=== PATIENT | male | born 1970 | race Caucasian/White ===

== ENCOUNTER 2018-04-20 13:45 | Inpatient (IN) | payer SELFPAY ==
[2018-04-20] MEDS ORDERED: ASPIRIN 325 MG TABLET PO ONE (14:29)
[2018-04-20 14:33] LABS: ABSOLUTE BASOPHILS # (AUTO) 0.1 10^3/uL (0.0-0.2); ABSOLUTE EOSINOPHILS # (AUTO) 0.3 10^3/uL (0.0-0.6); ABSOLUTE LYMPHOCYTES (AUTO) 0.6 10^3/uL (0.5-4.7); ABSOLUTE MONOCYTES (AUTO) 0.2 10^3/uL (0.1-1.4); ABSOLUTE NEUT (AUTO) 5.1 10^3/uL (1.7-8.2); BASOPHILS % (AUTO) 1.2 % (0-2); EOSINOPHILS % (AUTO) 4.2 % (0-6); HEMOGLOBIN 9.1 g/dL (13.5-17.0); LYMPHOCYTES % (AUTO) 9.3 % (13-45); MEAN CORPUSCULAR HEMOGLOBIN 26.7 pg (27.0-33.4); MEAN CORPUSCULAR HGB CONC 32.5 g/dL (32.0-36.0); MEAN CORPUSCULAR VOLUME 82 fl (80-97); MONOCYTES % (AUTO) 2.7 % (3-13); PLATELET COUNT 128 10^3/uL (150-450); RED BLOOD COUNT 3.41 10^6/uL (4.35-5.55); RED CELL DISTRIBUTION WIDTH 15.1 % (11.5-14.0); SEGMENTED NEUTROPHILS % (AUTO) 82.6 % (42-78); TOTAL CELLS COUNTED % (AUTO) 100 %; WHITE BLOOD COUNT 6.1 10^3/uL (4.0-10.5)
[2018-04-20 14:39] LABS: INTERNATIONAL RATION (INR) 1.11; PARTIAL THROMBOPLASTIN TIME 33.1 SEC (23.5-35.8); PROTHROMBIN TIME 14.9 SEC (11.4-15.4)
[2018-04-20 14:45] LABS: ALANINE AMINOTRANSFERASE 25 U/L (21-72); ALBUMIN 3.7 g/dL (3.5-5.0); ALKALINE PHOSPHATASE 64 U/L (38-126); ANION GAP 14 (5-19); ASPARTATE AMINO TRANSFERASE 11 U/L (17-59); BILIRUBIN,DIRECT 0.3 mg/dL (0.0-0.4); BILIRUBIN,TOTAL 0.3 mg/dL (0.2-1.3); BLOOD UREA NITROGEN 70 mg/dL (7-20); CARBON DIOXIDE 14 mmol/L (22-30); CHLORIDE 111 mmol/L (98-107); CREATINE KINASE 251 U/L (55-170); GLUCOSE 107 mg/dL (75-110); SODIUM 139.1 mmol/L (137-145); TOTAL PROTEIN 6.8 g/dL (6.3-8.2)
[2018-04-20 14:57] LABS: CREATINE KINASE MB 2.81 ng/mL (<4.55); TROPONIN I 0.014 ng/mL
[2018-04-20] MEDS ORDERED: CALCIUM GLUCONATE 1000 MG/10 ML INJ IV ONE (15:06)
[2018-04-20] MEDS ORDERED: NITROGLYCERIN 0.4 MG/TAB 25 TAB/BOTTLE SL ONE (15:06)
[2018-04-20] MEDS ORDERED: SODIUM POLYSTYRENE SULFONATE 15 GM/60 ML PO ONE ×2 (15:07→17:09)
--- NOTE | 2018-04-20 15:08 | RADIOLOGY REPORT (SQ) ---
EXAM DESCRIPTION: CHEST 2 VIEWS COMPLETED DATE/TIME: 04/20/2018 2:56 pm REASON FOR STUDY: shortness of breath COMPARISON: None. EXAM PARAMETERS: NUMBER OF VIEWS: two views TECHNIQUE: Digital Frontal and Lateral radiographic views of the chest acquired. RADIATION DOSE: NA LIMITATIONS: none FINDINGS: LUNGS AND PLEURA: Perihilar interstitial infiltrates. Inter fissural fluid and bilateral pleural effusions. MEDIASTINUM AND HILAR STRUCTURES: No masses or contour abnormalities. HEART AND VASCULAR STRUCTURES: Cardiomegaly with mild pulmonary vascular congestion. BONES: No acute findings. HARDWARE: None in the chest. OTHER: No other significant finding. IMPRESSION: Findings consistent with congestive failure with interstitial edema and pleural effusion s. TECHNICAL DOCUMENTATION: JOB ID: [id number] SC-69 2010 [employer]- All Rights Reserved Reading location - IP/workstation name: [email or web address]
[2018-04-20] MEDS ORDERED: FUROSEMIDE INJ/PF 40 MG/4 ML SDV IV ONE (15:10)
[2018-04-20] MEDS ORDERED: SODIUM BICARBONATE 8.4% INJ 50 MEQ/50 ML DISP.SYRIN IV ONE ×2 (15:48→20:00)
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
--- NOTE | 2018-04-20 16:59 | EKG REPORT ---
SEVERITY:- ABNORMAL ECG - SINUS RHYTHM VENTRICULAR ECTOPICS LEFT BUNDLE BRANCH BLOCK : Confirmed by: Kevin Rosario 20-Apr-2018 16:57:52
[2018-04-20 17:07] LABS: ARTERIAL BLOOD BASE EXCESS -12.9 mmol/L; ARTERIAL BLOOD H2CO3 0.95 mmol/L (1.05-1.35); ARTERIAL BLOOD HCO3 13.2 mmol/L (20-24); ARTERIAL BLOOD O2 SATURATION 97.8 % (94-98); ARTERIAL BLOOD PCO2 31.4 mmHg (35-45); ARTERIAL BLOOD PO2 119.8 mmHg (80-100); ARTERIAL BLOOD TOTAL CO2 14.2 mmol/L (23-27)
[2018-04-20 17:08] LABS: ARTERIAL BLOOD FIO2 3L
[2018-04-20 17:09] LABS: ARTERIAL BLOOD PH 7.24 (7.35-7.45)
[2018-04-20] MEDS ORDERED: GLUCAGON,HUMAN RECOMB 1 MG INJ IM PRN (17:33)
[2018-04-20] MEDS ORDERED: DEXTROSE 50%-WATER 25 GM/50 ML DISP.SYRIN IV PRN ×2 (17:33)
[2018-04-20] MEDS ORDERED: DEXTROSE 40% GEL 15 GM TUBE PO PRN ×2 (17:33)
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
[2018-04-20 19:07] LABS: ANION GAP 13 (5-19); BLOOD UREA NITROGEN 70 mg/dL (7-20); CARBON DIOXIDE 16 mmol/L (22-30); CHLORIDE 109 mmol/L (98-107); GLUCOSE 171 mg/dL (75-110); POTASSIUM 5.5 mmol/L (3.6-5.0); SODIUM 138.1 mmol/L (137-145)
[2018-04-20 19:21] LABS: CALCIUM 6.5 mg/dL (8.4-10.2)
[2018-04-20] MEDS ORDERED: METOLAZONE 5 MG TABLET PO ONE (19:30)
[2018-04-20] MEDS ORDERED: WATER IV PRN ×4 (19:32→19:46)
[2018-04-20] MEDS ORDERED: DEXTROSE 5% IV PRN ×4 (19:32→19:46)
[2018-04-20] MEDS ORDERED: SODIUM BICARBONATE IV PRN ×4 (19:32→19:46)
[2018-04-20] MEDS ORDERED: CALCIUM GLUCONATE 2,000 MG in DEXTROSE 5%-WATER 100 ML IV ONE (20:00)
[2018-04-20] MEDS ORDERED: LACTULOSE SYRUP 20 GM/30 ML UDCUP PO ONE ×2 (21:30→23:45)
[2018-04-20] MEDS ORDERED: LACTULOSE SYRUP 20 GM/30 ML UDCUP ONE ×2 (21:48→23:48)
[2018-04-20] MEDS: HEPARIN SOD (PORCINE) 5,000 UNIT/ML 1 ML SYRINGE SUBCUT SCH (21:58)
[2018-04-20] MEDS: FUROSEMIDE INJ/PF 40 MG/4 ML SDV IV SCH (21:58)
[2018-04-20] MEDS: INSULIN LISPRO 100 UNIT/ML 3 ML VIAL SUBCUT PRN (21:58)
[2018-04-20] MEDS: SODIUM BICARBONATE 650 MG TABLET PO SCH ×2 (21:58→22:58)
[2018-04-20] MEDS ORDERED: HYDRALAZINE HCL INJ/PF 20 MG/1 ML SDV ONE (23:47)
[2018-04-20] MEDS: HYDRALAZINE HCL INJ/PF 20 MG/1 ML SDV IV PRN (23:52)
[2018-04-21 05:40] LABS: ANION GAP 15 (5-19); BLOOD UREA NITROGEN 71 mg/dL (7-20); CARBON DIOXIDE 17 mmol/L (22-30); CHLORIDE 108 mmol/L (98-107); GLUCOSE 225 mg/dL (75-110); SODIUM 139.8 mmol/L (137-145)
[2018-04-21 05:46] LABS: CALCIUM 6.6 mg/dL (8.4-10.2)
[2018-04-21 05:47] LABS: POTASSIUM 4.3 mmol/L (3.6-5.0)
[2018-04-21] MEDS: FUROSEMIDE INJ/PF 40 MG/4 ML SDV IV SCH ×3 (05:53→22:28)
[2018-04-21] MEDS: INSULIN LISPRO 100 UNIT/ML 3 ML VIAL SUBCUT PRN ×3 (08:47→22:31)
[2018-04-21] MEDS ORDERED: INSULIN GLARGINE,HUM.REC.ANLOG 300 UNIT/3 ML INSULN.PEN SUBCUT SCH (10:00)
[2018-04-21] MEDS: SODIUM BICARBONATE 650 MG TABLET PO SCH ×2 (10:41→22:26)
[2018-04-21] MEDS: HEPARIN SOD (PORCINE) 5,000 UNIT/ML 1 ML SYRINGE SUBCUT SCH ×2 (10:42→22:21)
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
[2018-04-21] MEDS: INSULIN GLARGINE,HUM.REC.ANLOG 300 UNIT/3 ML INSULN.PEN SUBCUT SCH ×2 (12:16→22:29)
[2018-04-21 12:22] LABS: ABSOLUTE RETICS # 0.021 10^6/uL (0.028-0.122); RETICULOCYTE COUNT (AUTO) 0.64 % (0.66-2.85)
[2018-04-21 13:54] LABS: FOLATE 9.77 ng/mL (>2.76)
--- NOTE | 2018-04-21 15:36 | Progress Note ---
Provider Note Provider Note: Attempted to make arrangements to transfer patient to [facility], [facility] and [facility]. Transport is still not feasible at this time per transfer centers.
[2018-04-21] MEDS ORDERED: ACETAMINOPHEN 325 MG TABLET ONE (17:54)
[2018-04-21] MEDS ORDERED: DOBUTAMINE HCL/D5W 500 MG/250 ML RTUINJ IV PRN (17:57)
[2018-04-21] MEDS: ACETAMINOPHEN 325 MG TABLET PO PRN (17:58)
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
[2018-04-21] MEDS ORDERED: DOBUTAMINE HCL/D5W 500 MG/250 ML RTUINJ IV ONE (19:48)
--- NOTE | 2018-04-21 20:32 | RADIOLOGY REPORT (SQ) ---
EXAM DESCRIPTION: CHEST SINGLE VIEW COMPLETED DATE/TIME: 04/21/2018 8:02 pm REASON FOR STUDY: central line placement COMPARISON: 04/20/2018 EXAM PARAMETERS: NUMBER OF VIEWS: One view. TECHNIQUE: Single frontal radiographic view of the chest acquired. RADIATION DOSE: NA LIMITATIONS: None. FINDINGS: LUNGS AND PLEURA: No consolidation, masses or pneumothorax. Interstitial thickening has l argely resolved. Probable small bilateral pleural effusions. MEDIASTINUM AND HILAR STRUCTURES: No masses. Contour normal. HEART AND VASCULAR STRUCTURES: Cardiomegaly. BONES: No acute findings. HARDWARE: Right subclavian central venous catheter tip projects upper over the region of the right IJ , tip beyond the inferior margin of the image. OTHER: No other significant finding. IMPRESSION: Right subclavian central venous catheter tip projects upper over the region of the right IJ, tip beyond the inferior margin of the image.Interstitial thickening has largely resolved. Proba ble small bilateral pleural effusions. TECHNICAL DOCUMENTATION: JOB ID: [id number] [place]-72 2010 [employer]- All Rights Reserved Reading location - IP/workstation name: [email or web address]
[2018-04-21] MEDS ORDERED: LIDOCAINE 1% INJ-PF (10 MG/ML) 30 ML SDV ONE (20:57)
[2018-04-21] MEDS: HYDRALAZINE HCL INJ/PF 20 MG/1 ML SDV IV PRN (21:00)
[2018-04-21] MEDS ORDERED: LORAZEPAM INJ 2 MG/1 ML VIAL ONE (22:12)
[2018-04-21] MEDS: NITROGLYCERIN 50 MG/D5W 250 ML IV PRN (22:15)
--- NOTE | 2018-04-21 22:17 | RADIOLOGY REPORT (SQ) ---
XR CHEST 1 VIEW HISTORY: central line placement. COMPARISON: Radiographs from earlier the same day. FINDINGS/IMPRESSION: Interval repositioning of the right IJ line with the tip now terminating near the cavoatrial junction. No discernible pneumothorax. Unchanged appearance of lungs and pleura.
[2018-04-21] MEDS: METOPROLOL SUCCINATE 25 MG TAB.SR.24H PO SCH (22:27)
[2018-04-21] MEDS: HYDRALAZINE HCL 50 MG TABLET PO SCH (22:28)
[2018-04-21] MEDS ORDERED: LORAZEPAM INJ 2 MG/1 ML VIAL IV ONE (22:30)
[2018-04-21 23:07] LABS: CREATINE KINASE MB 1.62 ng/mL (<4.55); TROPONIN I 0.064 ng/mL
--- NOTE | 2018-04-21 23:45 | OPERATIVE REPORT E ---
Operative Report NAME: ELVIA CARVALHO : 1970 AGE: 47Y DATE OF SURGERY: 04/21/2018 ROOM: 318 PREOPERATIVE DIAGNOSIS: POOR VEINS FOR IV ACCESS AND PATIENT NEEDED PRESSORS AND ANTI-PRESSOR MEDICATIONS. PROCEDURE DONE: Insertion of central line. SURGEON: TATUM PERKINS M.D. ANESTHESIA: Local. INDICATION: This is a 47-year-old male who has poor veins for IV access and needed a central line for cardiac medications. DESCRIPTION OF PROCEDURE #1: The patient was placed in Trendelenburg position and the right subclavian area at the right infraclavicular area was then prepped and draped in the usual sterile fashion. Local anesthesia infiltrated the right infraclavicular area, the right subclavian vein punctured, and a guidewire passed through the needle towards the area of the superior vena cava. The needle was removed and the insertion site dilated. A triple-lumen catheter was then inserted through the guidewire to a distance of about 17 cm. The catheter was then anchored to the skin with 3-0 silk. All the 3 ports aspirated blood easily and instilled saline easily. A Biopatch placed at the insertion site and a transparent dressing placed. A chest x-ray was then obtained and showed that the catheter was going towards the area of the internal jugular vein towards the distal neck area. DESCRIPTION OF PROCEDURE #2: Because of this and the fact that the patient is a potential dialysis patient a new central line was placed in the right internal jugular vein. The patient was placed in the supine position and the right neck prepped and draped in the usual sterile fashion. With use of the ultrasound the right internal jugular vein was then identified. The skin was then anesthetized and the right internal jugular vein was then punctured and a guidewire passed through the needle towards the area of the superior vena cava. All the 3 ports aspirated blood easily and instilled saline easily. The catheter was then anchored to the skin with 3-0 silk. A Biopatch placed at the insertion site and transparent sterile dressings placed over the Biopatch and catheter. At this time the old catheter was then removed and pressure applied at the insertion site and a 4 x 4 and transparent dressing placed over the dressing. A chest x-ray was obtained immediately and the catheter was noted to be in a good position right at the junction of the right atrium and the superior vena cava. A formal reading will be obtained from the radiologist. There is no evidence of any pneumothorax. The patient tolerated the procedure well. DICTATING PHYSICIAN: TATUM PERKINS M.D. [id number] PHY#: [id number] ID: [id number] JOB#: [id number] ACCT: [id number] cc:TATUM PERKINS M.D. >
[2018-04-22] MEDS: FUROSEMIDE INJ/PF 40 MG/4 ML SDV IV SCH ×3 (05:49→22:21)
[2018-04-22] MEDS: HYDRALAZINE HCL 50 MG TABLET PO SCH ×3 (05:50→22:20)
[2018-04-22 06:13] LABS: CREATINE KINASE MB 1.62 ng/mL (<4.55)
[2018-04-22 06:15] LABS: TROPONIN I 0.175 ng/mL
--- NOTE | 2018-04-22 07:01 | CONSULTATION REPORT E ---
Consultation Report NAME: ELVIA CARVALHO : 1970 AGE: 47Y DATE: 04/21/2018 318 B TO: CLAUDIA VAZQUEZ M.D. FROM: DUTSY LANDEROS M.D. Requesting Physician The patient seen at 7:30 p.m. on 04/21/2018. Note: Sixty minutes were spent on this patient, with more than 50% of the time spent on direct patient care. Medical decision making is of high complexity. His medications have been reviewed. 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 The patient states that he has no chest pain or discomfort. The patient states since 1 month although he has not had any leg edema, he has had decreased effort tolerance with fatigue doing work that involves more than mild exertion. He also since the last month has had 2-pillow orthopnea and also has some episodes of PND. There are no palpitations or syncope. The patient denies any fever, chills, or cough or rigors. PAST MEDICAL HISTORY: The patient's past medical history is positive for a history of hypertension. He has diabetes mellitus type 1, with his diabetes being diagnosed at age 27, and not very well controlled. He also has a history of chronic kidney disease stage 5, diagnosed in December of 2015. He states that he has not followed with Dr. Dickinson, his metal framer, since June of 2017. At that time during the last visit to Dr. Dickinson he was told that he probably will be needing dialysis in the next 3-6 months; his GFR at that time being around 17-20 mL/h. He also states that he in 2017 had a cardiac catheterization and was told that he has normal coronary arteries. He has no other prior history of OK. He denies any history of congestive heart failure in the past. There is no history of cardiomyopathy, but the patient's echocardiography done this admission shows his LV ejection fraction to be 25%, with mild to moderate enlargement of the left ventricle. PAST SURGICAL HISTORY: None. SOCIAL HISTORY: The patient does not smoke. There is no history of EtOH abuse. ALLERGIES: He has no known allergies. DISPOSITION: The patient is a full code. His mother is the surrogate healthcare decision maker. MEDICATIONS: 1. Tylenol 650 mg p.o. q.6 hours p.r.n. 2. Aspirin 325 mg p.o. x1. 3. He is on calcium gluconate 1000 mg IV x1. 4. He also received Kayexalate 15 g x2 and also sodium bicarb 50 mg IV x1 for his hyperkalemia. 5. He is on glucose 40% gel 15 g p.o. p.r.n. and 30 mg p.o. p.r.n. hypoglycemia. 6. He is on dextrose 50% 12.5 g IV p.r.n. and 25 g IV p.r.n. hypoglycemia. 7. He is on Lasix 40 mg IV push q.8 hours. 8. He is on glucagon 1 mg IM p.r.n. hypoglycemia. 9. He is on heparin 5000 units subcutaneously q.12 hours. 10. He is on hydralazine 10 mg IV q.6 hours p.r.n. 11. He is on Lantus insulin 6 units subcutaneously q.12 hours. 12. He is on Accu-Chek a.c., t.i.d., and nightly with regular insulin coverage as per sliding scale. 13. He is on lactulose 20 mg p.o. x1. 14. He is on *------* 10 mg p.o. x1. 15. He is on nitroglycerin 1 tablet sublingual p.r.n. REVIEW OF SYSTEMS: CONSTITUTIONAL: Denies any fever, chills, or rigors. Complains of generalized fatigue and weakness. HEAD: Denies headaches or head injury. EYES: No history of amblyopia or diplopia. No history of amaurosis fugax. EARS: No history of hearing loss. No history of tinnitus. No history of recurrent ear infections. NOSE: No history of nosebleeds. No history of hay fever. No history of nasal polyposis. MOUTH: No history of altered taste sensation. No ulcers in the mouth. No bleeding from the gums. THROAT: No redness of the oropharynx. There are no exudates. There is no odynophagia or dysphagia. SKIN: There is no pruritus. There is no yellowish discoloration of the skin. There is no skin cancer. There is no psoriasis. NECK: No neck pain. No enlarged neck lymph nodes. No goiter. LUNGS: No history of asthma or COPD. No history of sleep apnea. No history of cough or sputum production. No history of wheezing. No history of pulmonary embolism. No history of hemoptysis. No history of pleuritic chest pain. No symptoms suggestive of upper or lower respiratory tract infection. CARDIAC: History of hypertension present. Denies prior history of cardiomyopathy or hypertension. No history of cardiac arrhythmia. No history of anginal symptoms. He states he has normal coronaries by cardiac catheterization in 2017. He has had some PND and orthopnea. No leg edema. No syncope. MUSCULOSKELETAL: Denies arthritis or collagen vascular disease. ENDOCRINE: History of diabetes mellitus type 1, insulin dependent, with diabetic nephropathy and neuropathy. No polydipsia or polyuria. No history of heat or cold intolerance. No history of thyroid disease. METABOLIC: Denies history of gout or hyperlipidemia. GASTROINTESTINAL: No history of GI bleed. No history of GERD. No history of peptic ulcer disease. No history of altered bowel movements. No history of fatty food intolerance. No history of cirrhosis. No history of jaundice. RENAL: History of chronic kidney disease stage 5. At present, has reached end-stage renal disease. This is probably secondary to cardiorenal syndrome due to the patient's poor LV ejection fraction and moderate mitral regurgitation. No symptoms of UTI. No history of hematuria, pyuria, or dysuria. The patient is still making urine and has put out some urine after the Lasix. CENTRAL NERVOUS SYSTEM: No history of TIA or CVA. No history of seizures, headaches, or migraines. History of diabetic neuropathy present. PSYCHIATRIC: No history of anxiety or depression. No suicidal ideation. No homicidal ideation. VASCULAR: Denies calf or buttock claudication. No history of DVT. HEMATOLOGIC: No history of bleeding diathesis. No history of clotting disorders. PHYSICAL EXAMINATION: GENERAL: The patient is well built and well nourished, in no acute distress. VITAL SIGNS: He is afebrile with a temperature of 98.6 degrees Fahrenheit. His pulse is 86 beats per minute. Blood pressure is 147/76. Respirations are 16 per minute. O2 sats are 98% on room air. HEENT: Head is atraumatic, normocephalic. Eyes: Pupils are equal, round, regular, reactive to light and accommodation. Extraocular movements are normal. There is no conjunctival pallor. There is no scleral icterus. Ears: Tympanic membranes are intact. External auditory canals are clear. Nose: There is no deviated nasal septum. Nares are patent. There is no inflammation of the nasal mucous membranes. Mouth: Mucous membranes of the mouth are moist. Tongue is moist. There are no ulcers. There is no bleeding from the gums. Throat: There is no redness of the oropharynx. There are no exudates. SKIN: There are no skin rashes, petechia, or ecchymosis. There are no skin lesions. NECK: Supple. There is no definite JVD. Carotids are equal. There is no bruit. There is no lymphadenopathy. There is no goiter. Trachea is central. LUNGS: Show bibasilar rales. There is no chest wall tenderness. There are no rhonchi or wheezing. S1 and S2 are heard. There is no S3 gallop. There is no S4 gallop. There is a systolic murmur of mitral regurgitation present. There is no rub. S1 is of normal intensity. ABDOMEN: Soft, nontender. There is no hepatosplenomegaly. Bowel sounds are well heard. There are no tender areas or masses. EXTREMITIES: Femorals are well felt. There are no femoral bruits. Leg pulses are well felt. There is no pedal edema. There is no DVT or cellulitis. There is no cyanosis or clubbing. There is no calf tenderness. CENTRAL NERVOUS SYSTEM: The patient is conscious, awake, alert, oriented x3 with no focal deficits. PSYCHIATRIC: The patient's judgment and insight are intact. His affect is normal. DIAGNOSTIC STUDIES: His chest x-ray done yesterday shows congestive heart failure with interstitial edema and pleural effusions. His repeat chest x-ray done today shows right subclavian central venous catheter in the region of the right IJ, tip beyond the inferior margin of the image. Interstitial thickening has largely resolved. Probable small bilateral pleural effusions. His EKG shows sinus rhythm with PVCs, left bundle branch block pattern. LABORATORY DATA: His white count is 6100. Hemoglobin is 9.1. Hematocrit is 28. His platelet count is 128,000. His reticulocyte count is 0.64. Absolute reticulocyte count is 0.021. His pro time is 14.9. INR is 1.11. PTT is 33.1. His ABGs done yesterday show a pH of 7.24, PCO2 is 31.4, PO2 is 119.8, and his O2 sats are 97.8% on an FiO2 of 3 L. The patient's sodium was 138.1 yesterday, with a potassium of 5.5. Today, sodium is 139.8, potassium is 4.3, chloride is 108, CO2 is 17. The patient's BUN is 71, creatinine is 9.67. GFR is reduced at 6 mL, which is end-stage renal disease. Glucose is 225. His lactic acid is 0.6. His hemoglobin A1c is 7.3. His calcium is 6.6. His iron is 35. His TIBC is 257. His percentage saturation is 14. Ferritin is 40.60. IMPRESSION: 1. Qneki-ld-lmdiasy systolic heart failure with the patient having cardiomyopathy. 2. Cardiomyopathy with severely reduced LV ejection fraction. Would recommend starting the patient on dobutamine since this worsening of his renal function may be related to cardiorenal syndrome due to poor cardiac output. In fact, the patient has *------* heart failure. Would also start the patient on IV nitroglycerin to control his blood pressure. Would recommend starting the patient also on a beta alexandra and in view of the patient's renal status, cannot use an NIKKI inhibitor or ARB, and hence, would recommend placing the patient on hydralazine. 3. Wnbvp-vg-vypmlyq renal disease. The patient has now reached end-stage renal disease. Most of this may be a combination of poor cardiac output causing further degeneration of the patient's renal function due to cardiorenal syndrome. 4. Mitral regurgitation, moderate. 5. Hypertension. 6. 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 7. Hyperkalemia, controlled. As mentioned earlier, would start the patient on a beta alexandra, continue the patient on hydralazine. Would also start the patient on p.o. hydralazine and use hydralazine IV p.r.n. if systolic blood pressure goes below 160. Also, would start the patient on dobutamine at 5 mcg/kg/min to see if this improves cardiac output and helps improve his renal status. Also, would place the patient on IV nitroglycerin to treat the patient's mitral regurgitation and also to keep the blood pressure in check. The patient may benefit from dialysis. Note: All of the above discussed with the patient. The patient did have a central line after I discussed the benefits, risks, and complications of central line and the need for central line in view of the use of possible inotropic agent. Discussed with the hospitalist taking care of the patient. Medical decision making is of high complexity. I subsequently informed the hospitalist that the patient has a bed in [place] and will be transferred there. Will follow with you if the patient remains in the hospital tomorrow. Thanking you. DICTATING PHYSICIAN: CLAUDIA VAZQUEZ M.D. [id number] PHY#: [id number] ID: [id number] JOB#: [id number] ACCT: [id number] cc:CLAUDIA VAZQUEZ M.D. > MTDD
[2018-04-22] MEDS: INSULIN LISPRO 100 UNIT/ML 3 ML VIAL SUBCUT PRN ×4 (08:36→22:24)
[2018-04-22] MEDS: ACETAMINOPHEN 325 MG TABLET PO PRN ×2 (08:42→23:02)
[2018-04-22] MEDS: SODIUM BICARBONATE 650 MG TABLET PO SCH ×2 (10:00→22:20)
[2018-04-22] MEDS: INSULIN GLARGINE,HUM.REC.ANLOG 300 UNIT/3 ML INSULN.PEN SUBCUT SCH ×2 (10:00→22:24)
[2018-04-22] MEDS: HEPARIN SOD (PORCINE) 5,000 UNIT/ML 1 ML SYRINGE SUBCUT SCH ×2 (10:00→22:24)
[2018-04-22] MEDS: METOPROLOL SUCCINATE 25 MG TAB.SR.24H PO SCH ×2 (10:00→22:21)
[2018-04-22 10:51] LABS: ANION GAP 15 (5-19); BLOOD UREA NITROGEN 75 mg/dL (7-20); CARBON DIOXIDE 18 mmol/L (22-30); CHLORIDE 103 mmol/L (98-107); GLUCOSE 301 mg/dL (75-110); POTASSIUM 3.9 mmol/L (3.6-5.0); SODIUM 135.9 mmol/L (137-145)
[2018-04-22 10:59] LABS: CALCIUM 6.3 mg/dL (8.4-10.2)
[2018-04-22 13:10] LABS: CREATINE KINASE MB 1.34 ng/mL (<4.55); TROPONIN I 0.126 ng/mL
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
--- NOTE | 2018-04-22 15:14 | Progress Note ---
Provider Note Provider Note: PROGRESS NOTE by Dr. Tiffany Tejada on 04/22/2018. SUBJECTIVE: The patient denies any chest pain or discomfort shortness of breath is slightly improved. He also states that he feels slightly better. The patient still has some orthopnea but no PND. There is no arrhythmias seen on the monitor. The patient denies any chest pain or discomfort. The patient tolerating dobutamine. Although his urine output is only totaled at 500 mL the patient states that this is the amount he passed in the urine no, but has also passed urine multiple times in the commode,which has not been measured. The patient denies any dizziness syncope or near syncope. There is no TIA or CVA symptoms. PHYSICAL EXAMINATION: The patient is well-built and well-nourished in no acute distress. He is well-groomed. Selected Entries 04/22/18 12:00 Temperature 99.7 F Temperature Oral Source Pulse Rate 92 Respiratory 16 Rate Blood Pressure 105/50 L [Left Upper Arm ] Blood Pressure 68 Mean [Left Upper Arm] O2 Sat by Pulse 98 Oximetry Oxygen Delivery Room Air Method ( includes room air) HEAD: Is atraumatic normocephalic. EYES pupils equal round regular reactive light accommodation. ENT is negative. NECK: Supple there is mild JVD present carotids equal there is no bruit there is no lymphadenopathy there is no goiter. Trachea central. There is no accessory muscle respiration use. LUNGS : A few bibasilar rales of CHF without any rhonchi or wheezing. There is no chest wall tenderness. HEART: S1-S2 is heard there is no S3 gallop there is no S4 gallop S1 is of normal intensity there is a systolic murmur left sternal border and apex there is no rub. ABDOMEN: Soft nontender there is no paraspinal megaly bowel sounds well heard there is no tender areas of masses. There is no rebound guarding or rigidity. EXTREMITIES: Femorals are well felt there is no femoral bruits neck pulses are well felt there is no pedal edema there is no DVT vasculitis is no calf tenderness. 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 PSYCHIATRIC: The patient judgment and insight are intact his affect is normal. 04/22/18 04/22/18 04/22/18 05:10 10:10 12:00 Sodium 135.9 L Potassium 3.9 Chloride 103 Carbon Dioxide 18 L BUN 75 H Creatinine 9.43 H Est GFR (Non-Af Amer) 6 L Glucose 301 H Calcium 6.3 L* Creatine Kinase 116 CK-MB (CK-2) 1.62 Troponin I 0.175 04/22/18 12:00 Sodium Potassium Chloride Carbon Dioxide BUN Creatinine Est GFR (Non-Af Amer) Glucose Calcium Creatine Kinase CK-MB (CK-2) 1.34 Troponin I 0.126 IMPRESSION: 1. Urowz-cu-lxvcxzq systolic heart failure with the patient having cardiomyopathy. 2. Cardiomyopathy with severely reduced LV ejection fraction. Would recommend starting the patient on dobutamine since this worsening of his renal function may be related to cardiorenal syndrome due to poor cardiac output. In fact, the patient has "forward pump "heart failure. Continue the patient's IV nitroglycerin drip. Would increase the patient's dobutamine to 7.5 mcg/kg/min. Continue hydralazine. Will increase the patient' s Lasix to 60 mg IV push every 8 hours. 3. Ggjwl-js-hymcnke renal disease. The patient has now reached end-stage renal disease. Most of this may be a combination of poor cardiac output causing further degeneration of the patient's renal function due to cardiorenal syndrome. 4. Mitral regurgitation, moderate. 5. Hypertension. 6. 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 Blood sugars still not optimally current controlled 7. Hyperkalemia, resolved. As mentioned earlier, would you the patient on a beta alexandra, continue the patient on hydralazine. Would use hydralazine IV p.r.n. if systolic blood pressure above 160. Also, mentioned earlier would increase dobutamine to 7 5 mcg/kg/min to see if this improves cardiac output and helps improve his renal status. The patient may benefit from dialysis. 8. Chronic left bundle branch block pattern. Discussed with the patient and medication changes. Discussed with the hospitalist taking care of the patient. The patient is awaiting a bed from [facility] where he has been accepted in transfer. Note 40 minutes spent on this patient more than 50% of time spent in direct patient care. His medications have been reviewed and adjusted. Medical decision making is of high complexity.
--- NOTE | 2018-04-22 17:11 | XCELERA REPORT ---
[address] [address] Transthoracic Echocardiogram Report Name: ELVIA CARVALHO Age: 47 yrs Gender: Male : 1970 Patient Status: Inpatient Patient Location: [address] [place], [place] [address] Study Date: 04/20/2018 08:57 PM Height: 73 in Weight: 175 lb BSA: 2.0 m2 Procedure: A two-dimensional transthoracic echocardiogram with color flow Doppler was performed. Study Quality: Technically suboptimal. The study was technically difficult with many images being suboptimal in quality. Reason For Study: fluid overload, ESRD, diastolic murmur History: fluid overload, ESRD, diastolic murmur / CHF. Ordering Physician: CRISTINA QUILES Performed By: Amarilis Silva Interpretation Summary The left ventricle is mildly to moderately dilated. There is normal left ventricular wall thickness. LV EF is 25% Left ventricular systolic function is severely reduced. There is severe global hypokinesis of the left ventricle. There is no thrombus. The right ventricle is grossly normal size. The right atrium is normal. The left atrium is moderately dilated. There is no evidence of mitral valve prolapse. There is no mitral valve stenosis. There is a moderate amount of mitral regurgitation There is no aortic valve stenosis There is no LVOT obstruction. There is a trace to mild amount of aortic regurgitation There is no tricuspid stenosis. There is a trace to mild amount of tricuspid regurgitation There is mild pulmonary hypertension by echo RVSP is 41 mm of Hg , with RA mean of 10. Small pericardial effusion. There are no echocardiographic or Doppler indications for cardiac tamponade MMode/2D Measurements & Calculations RVDd: 2.8 cm LVIDd: 6.4 cm FS: 28.0 % Ao root diam: 2.9 cm IVSd: 1.1 cm LVIDs: 4.6 cm EDV(Teich): 209.8 ml Ao root area: 6.6 cm2 LVPWd: 1.1 cm ESV(Teich): 98.4 ml LA dimension: 4.7 cm EF(Teich): 53.1 % Doppler Measurements & Calculations MV E max jagdeep: MV P1/2t max jagdeep: Ao V2 max: LV V1 max P.7 cm/sec 110.5 cm/sec 104.5 cm/sec 2.4 mmHg MV A max jagdeep: MV P1/2t: 45.8 msec Ao max P.4 mmHg LV V1 max: 68.1 cm/sec MVA(P1/2t): 4.8 cm2 76.7 cm/sec MV E/A: 1.4 MV dec slope: 707.2 cm/sec2 MV dec time: 0.14 sec PA V2 max: TR max jagdeep: MV P1/2t-pr_phl: 91.6 cm/sec 278.7 cm/sec 45.8 msec PA max PG: TR max P.1 mmHg 3.4 mmHg Left Ventricle The left ventricle is mildly to moderately dilated. There is normal left ventricular wall thickness. LV EF is 25%. Left ventricular systolic function is severely reduced. There is severe global hypokinesis of the left ventricle. There is no thrombus. Right Ventricle The right ventricle is grossly normal size. Atria The right atrium is normal. The left atrium is moderately dilated. Mitral Valve There is no evidence of mitral valve prolapse. There is no vegetation seen on the mitral valve. There is no mitral valve stenosis. There is a moderate amount of mitral regurgitation. Aortic Valve There is no aortic valvular vegetation. There is no aortic valve stenosis. There is no LVOT obstruction. There is a trace to mild amount of aortic regurgitation. Tricuspid Valve There is no tricuspid stenosis. There is a trace to mild amount of tricuspid regurgitation. There is mild pulmonary hypertension by echo. RVSP is 41 mm of Hg , with RA mean of 10. Pulmonic Valve There is no pulmonic valvular stenosis. There is no pulmonic valvular regurgitation. Great Vessels The aortic root is not well visualized. Effusions Small pericardial effusion. There are no echocardiographic or Doppler indications for cardiac tamponade. : CRISTINA QUILES > Tiffany Tejada
[2018-04-22] MEDS: DOBUTAMINE HCL/D5W 500 MG/250 ML RTUINJ IV PRN (17:19)
[2018-04-23] MEDS: FUROSEMIDE INJ/PF 40 MG/4 ML SDV IV SCH (06:29)
[2018-04-23] MEDS: HYDRALAZINE HCL 50 MG TABLET PO SCH ×2 (06:29→13:35)
[2018-04-23] MEDS: DOBUTAMINE HCL/D5W 500 MG/250 ML RTUINJ IV PRN (08:46)
[2018-04-23] MEDS: INSULIN LISPRO 100 UNIT/ML 3 ML VIAL SUBCUT PRN ×2 (08:46→12:17)
[2018-04-23] MEDS: ACETAMINOPHEN 325 MG TABLET PO PRN (08:53)
[2018-04-23 09:51] LABS: ANION GAP 17 (5-19); BLOOD UREA NITROGEN 79 mg/dL (7-20); CARBON DIOXIDE 17 mmol/L (22-30); CHLORIDE 99 mmol/L (98-107); GLUCOSE 371 mg/dL (75-110); POTASSIUM 3.7 mmol/L (3.6-5.0); SODIUM 132.5 mmol/L (137-145)
[2018-04-23 09:59] LABS: CALCIUM 6.8 mg/dL (8.4-10.2)
[2018-04-23] MEDS ORDERED: CALCIUM CARBONATE 500 MG TABLET PO SCH (10:00)
[2018-04-23] MEDS: INSULIN GLARGINE,HUM.REC.ANLOG 300 UNIT/3 ML INSULN.PEN SUBCUT SCH (10:00)
[2018-04-23] MEDS ORDERED: ONDANSETRON HCL INJ/PF 4 MG/2 ML SDV IV PRN (10:17)
[2018-04-23] MEDS: HEPARIN SOD (PORCINE) 5,000 UNIT/ML 1 ML SYRINGE SUBCUT SCH (10:33)
[2018-04-23] MEDS: SODIUM BICARBONATE 650 MG TABLET PO SCH (10:36)
[2018-04-23] MEDS: METOPROLOL SUCCINATE 25 MG TAB.SR.24H PO SCH (10:36)
[2018-04-23] MEDS: NITROGLYCERIN 50 MG/D5W 250 ML IV PRN (15:21)
--- NOTE | 2018-04-23 15:37 | RADIOLOGY REPORT (SQ) ---
EXAM DESCRIPTION: CHEST SINGLE VIEW COMPLETED DATE/TIME: 04/23/2018 3:15 pm REASON FOR STUDY: re eval congestion COMPARISON: 04/21/2018 NUMBER OF VIEWS: One view. TECHNIQUE: Single frontal radiographic view of the chest acquired. LIMITATIONS: None. FINDINGS: LUNGS AND PLEURA: No opacities, masses or pneumothorax. No pleural effusion. MEDIASTINUM AND HILAR STRUCTURES: No masses. Contour normal. HEART AND VASCULAR STRUCTURES: Heart enlarged without failure. Normal vasculature. BONES: No acute findings. HARDWARE: IJ line in the right atrium. OTHER: No other significant finding. IMPRESSION: HEART ENLARGED WITHOUT FAILURE. NO OTHER SIGNIFICANT RADIOGRAPHIC FINDING IN THE CHEST. TECHNICAL DOCUMENTATION: JOB ID: [id number] [employer]- All Rights Reserved Reading location - IP/workstation name: [email or web address]
[2018-04-23 18:50] VITALS: BP 122/62
--- NOTE | 2018-04-23 18:56 | Progress Note ---
Provider Note Provider Note: Patient developed some nausea this morning but no actual vomiting. No other acute event overnight. Lasix decreased to 40 mg q12h. Patient will be transported to [facility] today.
--- NOTE | 2018-04-23 19:51 | Progress Note ---
Provider Note Provider Note: HEAD: Is atraumatic normocephalic. EYES pupils equal round regular reactive light accommodation. ENT is negative. NECK: Supple there is mild JVD present carotids equal there is no bruit there is no lymphadenopathy there is no goiter. Trachea central. There is no accessory muscle respiration use. LUNGS : A few bibasilar rales of CHF without any rhonchi or wheezing. There is no chest wall tenderness. HEART: S1-S2 is heard there is no S3 gallop there is no S4 gallop S1 is of normal intensity there is a systolic murmur left sternal border and apex there is no rub. ABDOMEN: Soft nontender there is no paraspinal megaly bowel sounds well heard there is no tender areas of masses. There is no rebound guarding or rigidity. EXTREMITIES: Femorals are well felt there is no femoral bruits neck pulses are well felt there is no pedal edema there is no DVT vasculitis is no calf tenderness. 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 PSYCHIATRIC: The patient judgment and insight are intact his affect is normal. IMPRESSION: 1. Wiccw-yw-jyajbtn systolic heart failure with the patient having cardiomyopathy. 2. Cardiomyopathy with severely reduced LV ejection fraction. Would recommend starting the patient on dobutamine since this worsening of his renal function may be related to cardiorenal syndrome due to poor cardiac output. In fact, the patient has "forward pump "heart failure. Continue the patient's IV nitroglycerin drip. Would increase the patient's dobutamine to 7.5 mcg/kg/min. Continue hydralazine. Will increase the patient' s Lasix to 60 mg IV push every 8 hours. 3. Xnxpx-em-yizmymi renal disease. The patient has now reached end-stage renal disease. Most of this may be a combination of poor cardiac output causing further degeneration of the patient's renal function due to cardiorenal syndrome. 4. Mitral regurgitation, moderate. 5. Hypertension. 6. 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 Blood sugars still not optimally current controlled 7. Hyperkalemia, resolved. As mentioned earlier, would you the patient on a beta alexandra, continue the patient on hydralazine. Would use hydralazine IV p.r.n. if systolic blood pressure above 160. Also, mentioned earlier would increase dobutamine to 7 5 mcg/kg/min to see if this improves cardiac output and helps improve his renal status. The patient may benefit from dialysis. 8. Chronic left bundle branch block pattern.
--- NOTE | 2018-04-23 20:02 | Progress Note ---
Provider Note Provider Note: PROGRESS NOTE by Dr. Tiffany Overton for 04/23/2018. SUBJECTIVE: The patient earlier had some nausea which is now subsided. His renal function is worsened. The patient denies any shortness of breath at rest. There is no chest pain or discomfort. There is no arrhythmias seen. There is no pedal edema. The patient does not have any signs of uremia. The patient has no chest pain. There is no TIA or CVA symptoms. The patient is awaiting transfer to [facility] by helicopter. PHYSICAL EXAMINATION: The patient is well-built and well-nourished in no acute distress. Selected Entries 04/23/18 12:33 Temperature 98.8 F Temperature Axillary Source Pulse Rate 98 Respiratory 20 Rate Blood Pressure 128/58 H Blood Pressure 81 Mean O2 Sat by Pulse 99 Oximetry Oxygen Delivery Room Air Method HEAD: Is atraumatic normocephalic. EYES pupils equal round regular reactive light accommodation. ENT is negative. NECK: Supple there is mild JVD present carotids equal there is no bruit there is no lymphadenopathy there is no goiter. Trachea central. There is no accessory muscle respiration use. LUNGS : A few bibasilar rales of CHF without any rhonchi or wheezing. There is no chest wall tenderness. HEART: S1-S2 is heard there is no S3 gallop there is no S4 gallop S1 is of normal intensity there is a systolic murmur left sternal border and apex there is no rub. ABDOMEN: Soft nontender there is no paraspinal megaly bowel sounds well heard there is no tender areas of masses. There is no rebound guarding or rigidity. EXTREMITIES: Femorals are well felt there is no femoral bruits neck pulses are well felt there is no pedal edema there is no DVT vasculitis is no calf tenderness. 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 PSYCHIATRIC: The patient judgment and insight are intact his affect is normal. 04/22/18 04/22/18 04/23/18 12:00 12:00 09:00 Sodium 132.5 L Potassium 3.7 Chloride 99 Carbon Dioxide 17 L BUN 79 H Creatinine 11.24 H Est GFR (Non-Af Amer) 5 L Glucose 371 H Calcium 6.8 L* Creatine Kinase 116 CK-MB (CK-2) 1.34 Troponin I 0.126 Note that the patient's urine output is around 900 mL per 24 hours which is better. IMPRESSION: 1. Prxpx-gs-udjecui systolic heart failure with the patient having cardiomyopathy. 2. Cardiomyopathy with severely reduced LV ejection fraction. Would recommend starting the patient on dobutamine since this worsening of his renal function may be related to cardiorenal syndrome due to poor cardiac output. In fact, the patient has "forward pump "heart failure. Continue the patient's IV nitroglycerin drip. Would increase the patient's dobutamine to 7.5 mcg/kg/min. Continue hydralazine. Will increase the patient' s Lasix to 60 mg IV push every 8 hours. 3. Elevated troponin I: This is most likely secondary to patient's congestive heart failure and acute renal failure. No evidence of non-ST elevation WV. This is a type II my W[place] due to supply demand mismatch.. Hence will treat the underlying cause 4. Irywi-bj-stxhtlm renal disease. The patient has now reached end-stage renal disease. Most of this may be a combination of poor cardiac output causing further degeneration of the patient's renal function due to cardiorenal syndrome. 5. Mitral regurgitation, moderate. 6. Hypertension. 7. 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 Blood sugars still not optimally current controlled 8. Hyperkalemia, resolved. As mentioned earlier, would you the patient on a beta alexandra, continue the patient on hydralazine. Would use hydralazine IV p.r.n. if systolic blood pressure above 160. Also, mentioned earlier would increase Continue dobutamine at 7 5 mcg/kg/min. The patient may benefit from dialysis. 9. Chronic left bundle branch block pattern. Note that the patient is stable he is being transferred to [facility]. Will sign off.
[2018-04-23] MEDS ORDERED: FUROSEMIDE INJ/PF 40 MG/4 ML SDV IV SCH (22:00)
== END 2018-04-23 18:00 | disposition short-term general hospital (02) | DRG 291 ==
LOC: ER 13:45 → EH 16:13 → 3W 17:30
PROVIDERS: ADMIT Internal Medicine; ATTEND Internal Medicine
PROC: 02HV33Z Insertion of Infusion Device into Superior Vena Cava, Percutaneous Approach (ICD-10-PCS; principal; 2018-04-21)
PROC: 02HV33Z Insertion of Infusion Device into Superior Vena Cava, Percutaneous Approach (ICD-10-PCS; 2018-04-21)
DX: I13.2 Hypertensive heart and chronic kidney disease with heart failure and with stage 5 chronic kidney disease, or end stage renal disease (principal); N18.6 End stage renal disease; I50.23 Acute on chronic systolic (congestive) heart failure; N17.9 Acute kidney failure, unspecified; E10.22 Type 1 diabetes mellitus with diabetic chronic kidney disease; E10.21 Type 1 diabetes mellitus with diabetic nephropathy; E10.40 Type 1 diabetes mellitus with diabetic neuropathy, unspecified; E83.51 Hypocalcemia; E87.5 Hyperkalemia; D63.1 Anemia in chronic kidney disease; I44.7 Left bundle-branch block, unspecified; I34.0 Nonrheumatic mitral (valve) insufficiency; M54.5 Low back pain; Z79.4 Long term (current) use of insulin; Z75.1 Person awaiting admission to adequate facility elsewhere
CPT/HCPCS: 36415; 71045; 71046; 80048; 80053; 82550; 82553; 82607; 82652; 82728; 82746; 82803; 82962; 83036; 83540; 83550; 83605; 83880; 84100; 84484; 85025; 85045; 85610; 85730; 93005; 93010; 93306; 96374; 96375; 99291; C1751; J0360; J0610; J1250; J1642; J1644; J1815; J1940; J2060; J2405; J3490; J7060

== ENCOUNTER 2019-01-16 01:06 | Emergency (ER) | payer MEDICARE, MEDICAID ==
--- NOTE | 2019-01-16 02:00 | ER Document Report ---
ED General - General Chief Complaint: Shortness Of Breath Stated Complaint: SHORTNESS OF BREATH Time Seen by Provider: 01/16/19 01:54 Primary Care Provider: LILY HUFF MD [Primary Care Provider] - Follow up as needed Notes: Patient is a pleasant 48-year-old male who is end-stage renal disease patient that had dialysis today. He denies having any complications with dialysis today. Tonight he felt as if he had a gurgling type sensation in his throat. He felt as if could not breathe as and as if something was obstructing his breathing. He therefore came to the ER. He says shortly after getting to the ER he coughed several times and then his breathing normalized and he no longer had that gurgling type sensation in his throat. He has no other complaints this time. Denies any current chest pain. He denies any edema or fluid increase in his extremities. Denies abdominal pain or fevers. No other complaints at this time. TRAVEL OUTSIDE OF THE [place] IN LAST 30 DAYS: No - Related Data Allergies/Adverse Reactions: No Known Allergies Allergy (Unverified 04/20/18 14:10) Past Medical History - Social History Smoking Status: Never Smoker Frequency of alcohol use: None Drug Abuse: None Family History: Reviewed & Not Pertinent Endocrine Medical History: Reports: Hx Diabetes Mellitus Type 1 Renal/ Medical History: Reports: Hx End Stage Renal Disease. Denies: Hx Peritoneal Dialysis Psychiatric Medical History: Reports: Hx Depression Review of Systems - Review of Systems Notes: My Normal Review Basic REVIEW OF SYSTEMS: CONSTITUTIONAL : Denies fever, chills, or sweats. Denies recent illness. EENT: Denies eye, ear, throat, or mouth pain or symptoms. Denies nasal or sinus congestion. CARDIOVASCULAR: Denies chest pain. RESPIRATORY: episode of difficulty breathing since resolved. GASTROINTESTINAL: Denies abdominal pain. Denies nausea, vomiting, or diarrhea. GENITOURINARY: Denies difficulty urinating, painful urination, burning, frequency, or blood in urine. MUSCULOSKELETAL: Denies neck or back pain or joint pain or swelling. SKIN: Denies rash or skin lesions. NEUROLOGICAL: Denies altered mental status or loss of consciousness. Denies headache. Denies weakness or paralysis or loss of use of either side. Denies problems with gait or speech. Denies sensory or motor loss. ALL OTHER SYSTEMS REVIEWED AND NEGATIVE. Physical Exam - Vital signs Vitals: Temp Pulse Resp BP Pulse Ox 98.3 F 81 24 H 205/101 H 98 01/16/19 01:10 01/16/19 01:01/16/19 01:01/16/19 01:01/16/19 01:10 - Notes Notes: General Appearance: Well nourished, alert, cooperative, no acute distress, no obvious discomfort. Vitals: reviewed, See vital signs table. Head: no swelling or tenderness to the head Eyes: PERRL, EOMI, Conjuctiva clear Mouth: No decreasd moisture Lungs: No wheezing, No rales, No rhonci, No accessory muscle use, good air exchange bilaterally. Heart: Normal rate, Regular rythm, No murmur, no rub Abdomen: Normal BS, soft, No rigidity, No abdominal tenderness, No guarding, no rebound, no abdominal masses Extremities: strength 5/5 in all extremities, good pulses in all extremities, no swelling or tenderness in the extremities, no edema. Skin: warm, dry, appropriate color, no rash Neuro: speech clear, oriented x 3, normal affect, responds appropriately to questions. Course - Re-evaluation Re-evalutation: 01/16/19 03:04 I suspect patient may have had a episode of mucus plugging in his airway based on the fact that he had a gurgling type sound coming from his throat and he felt as if something is obstructing his breathing and this cleared with coughing. He did not have any chest pain. He currently is asymptomatic all vital signs and looks well. I did not check labs as patient just had dialysis this morning and says his testing is never elevated he does not have any symptoms concerning for an elevated potassium at this time. I feel patient safe to be discharged home. Encourage him to have a low threshold to return to ER if he has recurrent difficulty breathing or feels unwell in any way. Patient agrees with plan and will be discharged home. Dictation of this chart was performed using voice recognition software; therefore, there may be some unintended grammatical errors. - Vital Signs Vital signs: Temp Pulse Resp BP Pulse Ox 98.3 F 81 13 184/106 H 97 01/16/19 01:10 01/16/19 01:10 01/16/19 02:03 01/16/19 02:03 01/16/19 02:03 - EKG Interpretation by Me Additional EKG results interpreted by me: 01/16/19 01:54 EKG is reviewed and interpreted by me. EKG shows sinus rhythm with a rate of 80 bpm. Patient does have a left bundle branch block which is unchanged comparison to previous EKG from June 20, 2018. W[place] interval is within normal range. QRS duration and QT intervals are prolonged. Discharge - Discharge Clinical Impression: End stage renal disease Dyspnea Qualifiers: Dyspnea type: unspecified Qualified Code(s): R06.00 - Dyspnea, unspecified Condition: Good Disposition: HOME, SELF-CARE Additional Instructions: Your chest x-ray does not show any concerning findings. Your lung crump are clear to auscultation. I feel you are safe to be discharged home. Please continue to take your medications as prescribed. Please have a low threshold to return to ER if you have recurrent difficulty breathing or feel unwell in any way. Please follow-up your dialysis appointment as scheduled. Please return to ER immediately if you have any chest pain or fevers. Referrals: LILY HUFF MD [Primary Care Provider] - Follow up as needed
--- NOTE | 2019-01-16 02:32 | RADIOLOGY REPORT (SQ) ---
EXAM DESCRIPTION: XR CHEST 2 VIEWS COMPLETED DATE/TME: 01/16/2019 02:00 CLINICAL HISTORY: 48 years, Male, dyspnea Comparison: None FINDINGS: No focal lung consolidation. No pleural effusion. No pneumothorax. Cardiac and mediastinal silhouette is unremarkable. No acute osseous abnormality. Soft tissues are unremarkable. IMPRESSION: No acute findings. No focal lung consolidation.
[2019-01-16 03:06] VITALS: BP 191/96
--- NOTE | 2019-01-16 07:46 | EKG REPORT ---
SEVERITY:- ABNORMAL ECG - SINUS RHYTHM LEFT BUNDLE BRANCH BLOCK : Confirmed by: Tez Maynard MD 16-Jan-2019 07:46:01
== END 2019-01-16 03:15 | disposition home or self-care (01) ==
LOC: ER 01:06
DX: E10.22 Type 1 diabetes mellitus with diabetic chronic kidney disease (principal); N18.6 End stage renal disease; R06.00 Dyspnea, unspecified; Z99.2 Dependence on renal dialysis
CPT/HCPCS: 71046; 93005; 93010; 99285

== ENCOUNTER 2019-04-19 12:31 | Day surgery (SDC) | payer MEDICARE, MEDICAID ==
[~2019-04-19 12:31] MED LIST: CHONDR SU A NA/HYALUR INTRAOC KIT (SURGICARE) ONE; EPINEPHRINE INJ/PF 1 MG/1 ML AMPULE ONE; KETOROLAC TROMETHAMINE 0.45% 4 DROP/0.4 ML DROPERETTE OS PRN; LIDOCAINE 1% INJ-PF (10 MG/ML) 30 ML SDV ONE
[2019-04-19] MEDS: TETRACAINE HCL 0.5% OPH SOLN 4 ML OS PRN ×3 (13:37→14:10)
[2019-04-19] MEDS: TROPICAMIDE 1% OPH SOLN 15 ML OS PRN ×3 (13:37→14:02)
[2019-04-19] MEDS: CYCLOPENTOLATE 0.2%/PHENYLEPHRINE 1% OPH SOLN 2 ML OS PRN ×3 (13:38→14:02)
[2019-04-19] MEDS: BESIFLOXACIN HCL 0.6% OPH SUSP 5 ML BOTTLE OS PRN ×4 (13:38→15:14)
[2019-04-19] MEDS ORDERED: MIDAZOLAM 2 MG/2 ML INJ ONE (13:47)
[2019-04-19] MEDS: DORZOLAMIDE HCL 2%/TIMOLOL MALEAT 0.5% OPH SOLN 10 ML OS PRN ×2 (14:20→15:14)
[2019-04-19] MEDS ORDERED: FENTANYL CITRATE INJ/PF 100 MCG/2 ML AMPUL ONE (14:51)
--- NOTE | 2019-05-13 12:06 | Operative Report ---
Operative Report-[facility] Operative Report: Preoperative diagnosis: nuclear, cortical and posterior subcapsular cataract, left eye Postoperative diagnosis: nuclear, cortical and posterior subcapsular cataract, left eye Procedure: phacoemulsification and posterior chamber intraocular lens implant, left eye Procedure date: April 19, 2019 Surgeon: Jean-Paul Trammell MD Car Body Inspector: Ryan Fields CRNA Anesthesia: topical with IV sedation Complications: none Tissue to pathology: none Estimated blood loss: none Indications for surgery: Mr. Bae is a 48-year-old male who presented to our clinic complaining of difficulty seeing to read and drive due to blurry vision in his left eye. On examination, he was found to have a best corrected visual acuity of 20/200 in the left eye. Off the temple a P revealed a 2+ nuclear, 2+ cortical 2+ supposed to your sub capsular cataract in the left eye with a normal appearing cornea, vitreous, retina and optic nerve. I discussed the findings of the exam with the patient. We discussed the risks, benefits and alternatives of cataract extraction and intraocular lens implant in the left eye as a means of improving his vision. Risks that were discussed with the patient included infection, bleeding, retinal detachment and possible need for additional surgery. The patient understands that he may need to wear glasses after surgery. After our discussion, the patient indicated his interest in having this procedure performed by signing and informed, witnessed consent form. Report of procedure: On the day of surgery, the patient was given a topical application to the left eye that consisted of drops of tetracaine 0.5%, tropicamide 1%, Cyclomidril, Besivance 0.6% and Acular 0.45%. The patient was then taken to the operating room in a supine position in the standard eye bed. Intravenous sedation was administered and he was prepped and draped in the standard ophthalmic fashion. A time out was performed to confirm the surgical site. Attention was directed to the left eye where a paracentesis was created at the 530 position at the corneal limbus with a 15 blade. The anterior chamber was filled with 0.3 mL of 1% methylparaben free lidocaine and after 30 seconds into chambers filled with viscoelastic material. A three plane corneal incision was then made at the 3 oclock position at the cornea limbus with a keratome. A continuous curvilinear capsulorhexis was then made in the anterior capsule of the lens with a cystotome. The lens was hydrodissected using balanced saline solution. The lens nucleus was removed by phacoemulsification using the stop and chop technique. CDE 8.74. The remaining cortical material was then removed from the posterior capsular back using irrigation and aspiration. The posterior capsular bag was then filled with viscoelastic material and the lens implant was inserted into the posterior capsular bag. The lens chosen for this case was a one piece acrylic lens from [employer] model [id number] serial number [id number], the lens power was 22.0 D. The lens was removed from its package, inspected and found to be free of defects. It was loaded into a monarch D wharf helper. The insert it was passed through the temporal limbal wound and the lens was advanced into the posterior capsular bag. The lens implant was centered in the posterior capsular bag with the Murray spatula. The viscoelastic material was removed from the eye using irrigation and aspiration. The wounds were closed by stromal hydration and they were tested with Weck-alpesh sponges and found to have no leaks. Intraocular pressure was assessed by manual palpation and found to be within physiologic range. The drapes and speculum removed. Drops of Durezol, Combigan and gatifloxacin were instilled in the left eye. Periocular skin was cleaned with the gauze and the eye was covered with a shield. The patient was then taken to the recovery room in good condition. He tolerated the procedure very well. He was given a prescription for gatifloxacin, Durezol and Ilevro to use every two hours while awake today. He will return to my clinic tomorrow for follow up evaluation.
== END 2019-04-19 15:58 | disposition home or self-care (01) ==
LOC: SC 12:31
PROVIDERS: ATTEND Ophthalmology
DX: H25.812 Combined forms of age-related cataract, left eye (principal); E11.22 Type 2 diabetes mellitus with diabetic chronic kidney disease; I12.0 Hypertensive chronic kidney disease with stage 5 chronic kidney disease or end stage renal disease; N18.6 End stage renal disease; Z79.82 Long term (current) use of aspirin; Z79.899 Other long term (current) drug therapy; Z79.4 Long term (current) use of insulin
CPT/HCPCS: 66984; 82962; 00142; V2632; J2250; J3490 ×3; A9270; J0171; J3010; 142

== ENCOUNTER 2020-07-23 19:09 | Inpatient (IN) | payer MEDICARE, MEDICAID ==
[2020-07-23] MEDS ORDERED: ACETAMINOPHEN 325 MG TABLET PO ONE (19:52)
[2020-07-23] MEDS ORDERED: MORPHINE SULFATE 10 MG/ML INJ IV ONE ×2 (20:15→23:55)
[2020-07-23] MEDS ORDERED: ONDANSETRON HCL INJ/PF 4 MG/2 ML SDV IV ONE (20:15)
--- NOTE | 2020-07-23 21:15 | RADIOLOGY REPORT (SQ) ---
EXAM DESCRIPTION: XR FEMUR 2 VIEWS COMPLETED DATE/TME: 07/23/2020 20:57 CLINICAL HISTORY: 49 years, Male, fall; hip/femur pain COMPARISON: None. TECHNIQUE: AP and lateral views of the left femur. FINDINGS: Significant left hip intertrochanteric fracture with varus deformity in bilateral bone fragments. Vascular calcifications. IMPRESSION: Significant left proximal femur fracture.
--- NOTE | 2020-07-23 21:17 | RADIOLOGY REPORT (SQ) ---
EXAM DESCRIPTION: XR HIP 2 OR MORE VIEWS COMPLETED DATE/TME: 07/23/2020 20:57 CLINICAL HISTORY: 49 years, Male, fall; hip/femur pain COMPARISON: None. TECHNIQUE: Three view study of the lower pelvis and left hip. FINDINGS: Significant left hip intertrochanteric fracture with varus deformity in several fragments. The lower pelvis is otherwise unremarkable. Surgical clips in the left pelvis possibly lymphadenectomy. IMPRESSION: Significant left hip fracture with varus deformity.
--- NOTE | 2020-07-23 21:25 | ER Document Report ---
ED Hip Pain/Injury - General Chief Complaint: Hip Injury Stated Complaint: FALL,HIP PAIN Time Seen by Provider: 07/23/20 20:07 Notes: Patient is a 49-year-old male who presents the emergency department after a fall. Patient states that he tripped over his dog and landed on his left hip. Patient was unable to walk. EMS brought him in. They gave him some fentanyl, which helped a little bit with his pain. Patient has history of diabetes, which is controlled after he went into kidney failure from his diabetes. This past December, he had a kidney transplant and pancreas transplant. TRAVEL OUTSIDE OF THE [place] IN LAST 30 DAYS: No - Related Data Allergies/Adverse Reactions: No Known Allergies Allergy (Verified 07/23/20 19:33) Past Medical History - General Information source: Patient - Social History Smoking Status: Never Smoker Family History: Reviewed & Not Pertinent - Past Medical History Cardiac Medical History: Reports: Hx Hypertension Denies: Hx Heart Attack Pulmonary Medical History: Denies: Hx Asthma Neurological Medical History: Denies: Hx Cerebrovascular Accident, Hx Seizures Endocrine Medical History: Reports: Hx Diabetes Mellitus Type 1 Renal/ Medical History: Reports: Hx End Stage Renal Disease. Denies: Hx Peritoneal Dialysis GI Medical History: Denies: Hx Hepatitis, Hx Hiatal Hernia, Hx Ulcer Psychiatric Medical History: Reports: Hx Depression Infectious Medical History: Denies: Hx Hepatitis Past Surgical History: Denies: Hx Open Heart Surgery, Hx Pacemaker Review of Systems - Review of Systems Notes: REVIEW OF SYSTEMS: CONSTITUTIONAL : Denies recent illness. Denies recent unintentional weight loss. Denies fever, chills, or sweats. EENT: Denies eye, ear, throat, or mouth pain, discharge, or symptoms. Denies nasal or sinus congestion. CARDIOVASCULAR: Denies chest pain. RESPIRATORY: Denies shortness of breath, cough, congestion, difficulty breathing, or wheezing. GASTROINTESTINAL: Denies nausea, vomiting, and diarrhea. Denies abdominal pain. Denies constipation. GENITOURINARY: Denies difficulty urinating, burning, blood in urine, urgency or frequency. MUSCULOSKELETAL: See HPI. SKIN: Denies rash, itchiness, or lesions HEMATOLOGIC : Denies easy bruising or bleeding. LYMPHATIC: Denies swollen, painful, enlarged glands. NEUROLOGICAL: Denies no numbness or tingling denies weakness. Denies headache. Denies altered mental status. Denies alteration in speech. PSYCHIATRIC: Denies stress, anxiety, alteration in sleep patterns, or depression. All other systems reviewed and negative. Physical Exam - Vital signs Vitals: Temp 98.6 F 07/23/20 19:29 - Notes Notes: PHYSICAL EXAMINATION: GENERAL: Appears well, healthy, well-nourished, no acute distress. HEAD: Normocephalic, atraumatic. EYES: PERRL, conjunctiva normal, all extraocular movements intact, sclera nonicteric ENT: Moist mucous membranes. NECK: Supple, no noticeable swelling, redness, rash. Normal range of motion. LUNGS: Equal breath sounds bilaterally and clear to auscultation. No wheezes rales or rhonchi. CARDIOVASCULAR: S1-S2, regular rate, regular rhythm. Radial pulses 2+, normal. ABDOMEN: Normoactive bowel sounds. Soft, nontender, no guarding, no rebound tenderness, and no masses palpated. EXTREMITIES: Shortening noted to left lower extremity. 1+ dorsalis pedis and posterior tibial pulses. NEUROLOGICAL: Moves all extremities upon command. Strength 5/5 in all extremities. PSYCH: Normal mood, normal affect. SKIN: Warm, dry. No rash, lesions, ulcerations noted. Normal skin turgor. Course - Re-evaluation Re-evalutation: 07/23/20 21:26 Patient has a left hip fracture. He did have some shortening to his left leg. Paged Dr. Tomas for admission. 07/23/20 21:[address] Tomas, the orthopedic doctor. He agrees to do surgery in the morning. I then subsequently called Dr. Horton, the hospitalist. Will wait for lab results and will rediscuss admission with Dr. Horton 07/24/20 01:30 Chemistries are unremarkable. Hematology is still pending. Dr. Horton will admit the patient to medical floor. - Vital Signs Vital signs: Temp Pulse Resp BP Pulse Ox 98.1 F 88 17 143/85 H 97 07/24/20 05:37 07/23/20 19:58 07/24/20 05:31 07/24/20 05:31 07/24/20 05:00 - Laboratory Results Result Diagrams: 07/24/20 01:00 07/23/20 22:55 Laboratory Results Interpreted: 07/23/20 07/24/20 22:55 01:00 WBC 15.1 H RBC 5.97 H Hct 51.7 H MCHC 31.3 L RDW 14.1 H Plt Count 58 L Lymph % (Auto) 0.6 L Absolute Neuts (auto) 14.2 H Absolute Lymphs (auto) 0.1 L Seg Neutrophils % 93.7 H Sodium 135.6 L Chloride 108 H Glucose 137 H Critical Laboratory Results Reviewed: No Critical Results - Radiology Results Critical Radiology Results Reviewed: No Critical Results Discharge - Discharge Clinical Impression: Closed left hip fracture Qualifiers: Encounter type: initial encounter Qualified Code(s): S72.002A - Fracture of unspecified part of neck of left femur, initial encounter for closed fracture Condition: Stable Disposition: ADMITTED INPATIENT [facility] Admitted: Medical Floor
[2020-07-23 23:28] LABS: INTERNATIONAL RATION (INR) 0.98; PROTHROMBIN TIME 13.2 SEC (11.4-15.4)
[2020-07-23 23:29] LABS: PARTIAL THROMBOPLASTIN TIME 29.1 SEC (23.5-35.8)
[2020-07-23 23:35] LABS: ALBUMIN 3.9 g/dL (3.5-5.0); ALKALINE PHOSPHATASE 72 U/L (38-126); ANION GAP 6 (5-19); ASPARTATE AMINO TRANSFERASE 20 U/L (17-59); BILIRUBIN,DIRECT 0.1 mg/dL (0.0-0.4); BILIRUBIN,TOTAL 0.4 mg/dL (0.2-1.3); BLOOD UREA NITROGEN 18 mg/dL (7-20); CALCIUM 9.3 mg/dL (8.4-10.2); CARBON DIOXIDE 22 mmol/L (22-30); CHLORIDE 108 mmol/L (98-107); GLUCOSE 137 mg/dL (75-110); POTASSIUM 4.2 mmol/L (3.6-5.0); TOTAL PROTEIN 6.9 g/dL (6.3-8.2)
[2020-07-24] MEDS ORDERED: GLUCAGON,HUMAN RECOMB 1 MG INJ SUBCUT PRN (01:54)
[2020-07-24] MEDS ORDERED: DEXTROSE 40% GEL 15 GM TUBE PO PRN ×4 (01:54→08:47)
[2020-07-24] MEDS ORDERED: ACETAMINOPHEN 325 MG TABLET PO PRN (01:54)
[2020-07-24] MEDS ORDERED: DEXTROSE 50%-WATER 25 GM/50 ML DISP.SYRIN IV PRN ×4 (01:54→08:47)
[2020-07-24] MEDS ORDERED: MORPHINE SULFATE 10 MG/ML INJ IV PRN (02:00)
--- NOTE | 2020-07-24 02:18 | PDOC H&P ---
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 Patient states that he was trip ped by his dog and fell down to the ground hurting his left hip area. Since the fall he has been having severe constant, 10/10 intensity left hip pain with some visible deformity on the lateral side of his hip. He has not been able to move his left lower extremity due to pain since the incident. Patient has chronic limitation in moving his both lower extremities due to foot drop and severe tayla pheral neuropathy from diabetes. He denies any new onset numbness or tingling in his lower extremity distal to the injury site. He has not noticed swelling of his left lower extremity apart from the injury site. He denies any fever, and has not had any urinary or bowel movement since the incident. He denies any cough, chest pain, palpitation, nausea, vomiting or diarrhea in the past few days. He also denies any dizziness, loss of consciousness during, prior to or after the fall. Past Medical History Cardiac Medical History: Reports: Hypertension Denies: Myocardial Infarction Pulmonary Medical History: Denies: Asthma Neurological Medical History: Denies: Seizures Endocrine Medical History: Reports: Diabetes Mellitus Type 1 Renal/ Medical History: Reports: End Stage Renal Disease GI Medical History: Denies: Hepatitis, Hiatal Hernia Psychiatric Medical History: Reports: Depression Hematology: Reports: Anemia Denies: Sickle Cell Disease Past Surgical History Past Surgical History: Denies: Pacemaker Social History Smoking Status: Never Smoker Frequency of Alcohol Use: None Hx Recreational Drug Use: Yes - history Drugs: None Hx Prescription Drug Abuse: No - Advance Directive Resuscitation Status: Full Code Family History Family History: Reviewed & Not Pertinent Parental Family History Reviewed: Yes Children Family History Reviewed: Yes Sibling(s) Family History Reviewed.: Yes Medication/Allergy Home Medications: Carvedilol [Coreg 12.5 mg Tablet] 6.25 mg PO Q12 04/20/18 Insulin Aspart [Novolog Flexpen] 0 unit SUBCUT .SLD SCALE MDD 1 UNIT PER 20CARBS 04/20/18 Insulin Glargine,Hum.rec.anlog [Lantus Solostar] 8 unit SQ Q12 04/20/18 Aspirin [Ecotrin] 81 mg PO DAILY PRN 04/18/19 Lisinopril 20 mg PO BID 04/18/19 Allergies/Adverse Reactions: No Known Allergies Allergy (Verified 07/23/20 19:33) Review of Systems Constitutional: ABSENT: chills, fever(s), headache(s), weight gain, weight loss Eyes: ABSENT: visual disturbances Ears: ABSENT: hearing changes Nose, Mouth, and Throat: ABSENT: mouth pain, sore throat Cardiovascular: ABSENT: chest pain, dyspnea on exertion, edema, orthropnea, palp itations Respiratory: ABSENT: cough, hemoptysis Gastrointestinal: ABSENT: abdominal pain, constipation, diarrhea, hematemesis, hematochezia, nausea, vomiting Genitourinary: ABSENT: dysuria, hematuria Musculoskeletal: PRESENT: as per HPI Integumentary: ABSENT: rash, wounds Neurological: ABSENT: abnormal gait, abnormal speech, confusion, dizziness, s yncope Psychiatric: ABSENT: anxiety, depression, homidical ideation, suicidal ideation Endocrine: ABSENT: cold intolerance, heat intolerance, polydipsia, polyuria Hematologic/Lymphatic: ABSENT: easy bleeding, easy bruising Physical Exam Vital Signs: Temp Pulse Resp BP Pulse Ox 98.1 F 88 12 119/84 98 07/24/20 01:51 07/23/20 19:58 07/24/20 01:31 07/24/20 01:31 07/24/20 01:31 Intake & Output 07/22/20 07/23/20 07/24/20 06:59 06:59 06:59 Weight 90.718 kg Additional comments: GENERAL APPEARANCE: Alert and oriented x3, mild discomfort due to pain HEENT: Normocephalic and atraumatic. No scleral icterus. Moist oral mucosa NECK: Supple. No lymphadenopathy or tenderness. No carotid bruit. No JVD CHEST: Symmetric. Nontender to palpation. LUNGS: Clear with good air entry bilaterally. No wheezing or crackles HEART: Regular rate and rhythm with normal S1 and S2. No murmurs, gallops, or rubs. ABDOMEN: Has a well-healed midline surgical scar, soft, active bowel sounds, no direct or rebound tenderness. No organomegaly detected. EXTREMITIES: No cyanosis, clubbing, or edema. Both lower extremities are cold. Dorsalis pedis and posterior tibialis pulses could not be palpated on both sides MUSCULOSKELETAL: Has a deformity on the lateral side of upper left thigh with tenderness on palpation but no open wound. Has limitation of movement of the left lower extremity PSYCHIATRIC: Recent and remote memory is intact. Appropriate mood and affect. SKIN: Warm, dry, and well perfused. No lesions or rashes are noted. NEUROLOGIC: Has bilateral foot drop and limited movement of bilateral toes which are longstanding and chronic. No other new focal neurologic deficit was detected Results Laboratory Results: 07/23/20 22:55 07/23/20 07/23/20 22:55 22:55 WBC Cancelled RBC Cancelled Hgb Cancelled Hct Cancelled MCV Cancelled MCH Cancelled MCHC Cancelled RDW Cancelled Plt Count Cancelled Seg Neutrophils % Cancelled Sodium 135.6 L Potassium 4.2 Chloride 108 H Carbon Dioxide 22 Anion Gap 6 BUN 18 Creatinine 1.02 Est GFR ( Amer) > 60 Glucose 137 H Calcium 9.3 Total Bilirubin 0.4 AST 20 Alkaline Phosphatase 72 Total Protein 6.9 Albumin 3.9 Impressions: Femur X-Ray 07/23/20 20:15 IMPRESSION: Significant left proximal femur fracture. Hip X-Ray 07/23/20 20:15 IMPRESSION: Significant left hip fracture with varus deformity. Assessment and Plan - Diagnosis (1) Closed left femoral fracture Qualifiers: Encounter type: initial encounter Is this a current diagnosis for this admission?: Yes Plan: Patient presents with left hip pain after a fall X-ray shows a significant left proximal femoral fracture No sign of vascular compromise detected distal to the fracture site We will control pain with Dilaudid Orthopedics on board and planning to do surgery in the morning (2) Closed left hip fracture Qualifiers: Encounter type: initial encounter Qualified Code(s): S72.002A - Fracture of unspecified part of neck of left femur, initial encounter for closed fracture Is this a current diagnosis for this admission?: Yes Plan: History is significant for a left-sided fracture with varus deformity Continue bedrest Pain control with Dilaudid Orthopedic recommendations appreciated (3) History of kidney transplant Is this a current diagnosis for this admission?: Yes Plan: Patient has kidney and pancreas transplants in December 2019 Kidney function test on this presentation within the normal limits Continue steroids and other immunosuppressive therapies (4) History of pancreas transplant Is this a current diagnosis for this admission?: Yes Plan: Status post pancreas transplantation 6 months back Continue management as stated above (5) History of diabetes mellitus Is this a current diagnosis for this admission?: Yes Plan: After pancreas transplant patient has been taken off of his insulin and current ly not on any medication Continue Accu-Cheks (6) Bilateral foot-drop Is this a current diagnosis for this admission?: Yes Plan: Patient reports that he developed bilateral foot drop due to longstanding diabetes Would continue physical therapy Has no new focal neurologic deficits - Time Time Spent with patient: 35 or more minutes Total Critical Time (Minutes): 40 Medications reviewed and adjusted accordingly: Yes Anticipated Discharge Disposition: Home, Self Care Anticipated Discharge Timeframe: within 72 hours - Inpatient Certification Based on my medical assessment, after consideration of the patient's comorbidities, presenting symptoms, or acuity I expect that the services needed warrant INPATIENT care.: Yes I certify that my determination is in accordance with my understanding of Medicare's requirements for reasonable and necessary INPATIENT services [42 CFR 412.3e].: Yes Medical Necessity: Need Close Monitoring Due to Risk of Patient Decompensation, Need for Pain Control, Need for Surgery, Risk of Complication if Not Cared For in Hospital Post Hospital Care: D/C or Transfer Summary
[2020-07-24] MEDS: RINGERS SOLUTION,LACTATED 1,000 ML IV PRN ×2 (03:00→18:15)
[2020-07-24] MEDS: ONDANSETRON HCL INJ/PF 4 MG/2 ML SDV IV PRN ×2 (05:35→14:18)
[2020-07-24] MEDS: HYDROMORPHONE HCL INJ/PF 2 MG/ML AMPULE IV PRN ×4 (05:35→23:39)
[2020-07-24] MEDS ORDERED: NORMAL SALINE 250 ML IV PRN ×2 (07:49)
[2020-07-24] MEDS: HYDROMORPHONE HCL INJ/PF 2 MG/ML AMPULE ONE ×3 (08:24→12:25)
--- NOTE | 2020-07-24 08:46 | PDOC PROGRESS REPORT ---
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 Patient states that he was tripped by his dog and fell down to the ground hurting his left hip area. Since the fall he has been having severe constant, 10/10 intensity left hip pain with some visible deformity on the lateral side of his hip. He has not been able to move his left lower extremity due to pain since the incident. Patient has chronic limitation in moving his both lower extremities due to foot drop and severe peripheral neuropathy from diabetes. He denies any new onset numbness or tingling in his lower extremity distal to the injury site. He has not noticed swelling of his left lower extremity apart from the injury site. He denies any fever, and has not had any urinary or bowel movement since the incident. He denies any cough, chest pain, palpitation, nausea, vomiting or diarrhea in the past few days. He also denies any dizziness, loss of consciousness during, prior to or after the fall. 07/24/[id number]-yqvg-old male with history of kidney, pancreas replacement in December 2017 on immunosuppressants admitted after a fall. Found to have left hip fracture. Dr. Tomas was consulted, patient may go [place] [address], to repeat the platelet count today. Comfortably in the bed alert awake communicating well. Reason For Visit: LEFT PROXIMAL FEMORAL FRACTURE,HIP FRACTURE Physical Exam Vital Signs: Temp Pulse Resp BP Pulse Ox 98.1 F 88 17 112/75 96 07/24/20 05:37 07/23/20 19:58 07/24/20 07:01 07/24/20 07:01 07/24/20 06:31 Intake & Output 07/23/20 07/24/20 07/25/20 06:59 06:59 06:59 Weight 90.6 kg General appearance: PRESENT: no acute distress, cooperative, well-developed Head exam: PRESENT: atraumatic Eye exam: PRESENT: PERRLA Mouth exam: PRESENT: moist, tongue midline Teeth exam: PRESENT: poor dentation Neck exam: ABSENT: carotid bruit, JVD, lymphadenopathy, thyromegaly Respiratory exam: PRESENT: decreased breath sounds Cardiovascular exam: PRESENT: RRR. ABSENT: diastolic murmur, rubs, systolic murmur GI/Abdominal exam: PRESENT: normal bowel sounds, other - Previous surgical scar over the abdomen. Rectal exam: PRESENT: deferred Extremities exam: PRESENT: full ROM. ABSENT: calf tenderness, clubbing, pedal edema Neurological exam: PRESENT: alert, awake, oriented to person, oriented to place, oriented to time, oriented to situation, CN II-XII grossly intact. ABSENT: motor sensory deficit Results Laboratory Results: 07/24/20 01:00 07/23/20 22:55 07/23/20 07/23/20 07/24/20 22:55 22:55 01:00 WBC Cancelled 15.1 H RBC Cancelled 5.97 H Hgb Cancelled 16.2 Hct Cancelled 51.7 H MCV Cancelled 87 MCH Cancelled 27.1 MCHC Cancelled 31.3 L RDW Cancelled 14.1 H Plt Count Cancelled 58 L Seg Neutrophils % Cancelled 93.7 H Sodium 135.6 L Potassium 4.2 Chloride 108 H Carbon Dioxide 22 Anion Gap 6 BUN 18 Creatinine 1.02 Est GFR ( Amer) > 60 Glucose 137 H Calcium 9.3 Total Bilirubin 0.4 AST 20 Alkaline Phosphatase 72 Total Protein 6.9 Albumin 3.9 Impressions: Femur X-Ray 07/23/20 20:15 IMPRESSION: Significant left proximal femur fracture. Hip X-Ray 07/23/20 20:15 IMPRESSION: Significant left hip fracture with varus deformity. Assessment and Plan - Diagnosis (1) Closed left femoral fracture Qualifiers: Encounter type: initial encounter Is this a current diagnosis for this admission?: Yes Plan: 07/24/2020-patient admitted with left hip fracture Dr. Tomas is following the patient patient may go for surgery today. Is n.p.o. except for medications. GI prophylaxis initiated. (2) History of kidney transplant Is this a current diagnosis for this admission?: No Plan: 07/24/2020-patient has history of kidney transplant to continue immunosuppressants during the hospital stay. Creatinine is within normal limits. (3) History of pancreas transplant Is this a current diagnosis for this admission?: No Plan: 07/24/2020-patient has history of pancreatic transplant. It is secondary to severe diabetes. Patient is requesting to continue no suppressants. (4) History of diabetes mellitus Is this a current diagnosis for this admission?: No Plan: 07/24/2020-patient has history of type 2 diabetes mellitus. Patient continues q 6 hours. (5) Thrombocytopenia Is this a current diagnosis for this admission?: Yes Plan: 07/24/2020-platelet count is 58,000. Plan is to repeat the CBC. Thrombocytopenia may be secondary to chronic liver disease. Or secondary to immunosuppressants. - Time Anticipated Discharge Disposition: Home, Self Care Anticipated Discharge Timeframe: within 72 hours
[2020-07-24] MEDS ORDERED: GLUCAGON,HUMAN RECOMB 1 MG INJ IM PRN (08:47)
--- NOTE | 2020-07-24 08:51 | PDOC CONSULTATION ---
Consultation Consult Date: 07/24/20 Attending physician:: BHARTI PATIÑO Provider Consulted: DREA JEWELL Consult reason:: Left hip pain. 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 The patient has bilateral severe diabetic peripheral neuropathy and foot drop. He tripped over his dog last evening resulting in a fall. He presented to the emergency room complaining of severe left hip pain and inability to ambulate. The patient has no other complaints. Past Medical History Cardiac Medical History: Reports: Hypertension, Peripheral Vascular Disease Denies: Myocardial Infarction Pulmonary Medical History: Denies: Asthma Neurological Medical History: Denies: Seizures Endocrine Medical History: Reports: Diabetes Mellitus Type 1 Renal/ Medical History: Reports: End Stage Renal Disease GI Medical History: Denies: Hepatitis, Hiatal Hernia Psychiatric Medical History: Reports: Depression Hematology: Reports: Anemia, Neutropenia Denies: Sickle Cell Disease Past Surgical History Past Surgical History: Reports: Other - Kidney and pancreatic transplants Denies: Pacemaker Social History Smoking Status: Never Smoker Frequency of Alcohol Use: None Hx Recreational Drug Use: Yes - history Drugs: None Hx Prescription Drug Abuse: No - Advance Directive Resuscitation Status: Full Code Family History Family History: Reviewed & Not Pertinent Parental Family History Reviewed: No Children Family History Reviewed: No Sibling(s) Family History Reviewed.: No Medication/Allergy Home Medications: Carvedilol [Coreg 12.5 mg Tablet] 6.25 mg PO Q12 04/20/18 Insulin Aspart [Novolog Flexpen] 0 unit SUBCUT .SLD SCALE MDD 1 UNIT PER 20CARBS 04/20/18 Insulin Glargine,Hum.rec.anlog [Lantus Solostar] 8 unit SQ Q12 04/20/18 Aspirin [Ecotrin] 81 mg PO DAILY PRN 04/18/19 Lisinopril 20 mg PO BID 04/18/19 Allergies/Adverse Reactions: No Known Allergies Allergy (Verified 07/23/20 19:33) Review of Systems ROS unobtainable: Other - As per HPI Physical Exam Vital Signs: Temp Pulse Resp BP Pulse Ox 98.1 F 88 17 112/75 96 07/24/20 05:37 07/23/20 19:58 07/24/20 07:01 07/24/20 07:01 07/24/20 06:31 Intake & Output 07/23/20 07/24/20 07/25/20 06:59 06:59 06:59 Weight 90.6 kg General appearance: PRESENT: no acute distress, well-developed, well-nourished Head exam: PRESENT: atraumatic, normocephalic Eye exam: PRESENT: conjunctiva pink, EOMI, PERRLA. ABSENT: scleral icterus Mouth exam: PRESENT: moist, tongue midline Throat exam: ABSENT: post pharyngeal erythema, tonsillar erythema, tonsillar exudate, tonsillogmegaly, other Neck exam: ABSENT: carotid bruit, full ROM, JVD, lymphadenopathy, meningismus, tenderness, thyromegaly, tracheal deviation, tracheostomy, other Respiratory exam: ABSENT: accessory muscle use, chest wall tenderness, clear to auscultation raimundo, crackles, decreased breath sounds, prolonged expiratory phas, rales, retraction, rhonchi, stridor, symmetrical, tachypnea, unlabored, wheezes, other Cardiovascular exam: ABSENT: bradycardia, clicks, diastolic murmur, gallop, ir regular rhythm, RRR, rubs, +S1, +S2, systolic murmur, tachycardia, other Pulses: PRESENT: +1 pedal pulses bilateral GI/Abdominal exam: PRESENT: normal bowel sounds, soft. ABSENT: distended, guarding, mass, organolmegaly, rebound, tenderness Rectal exam: PRESENT: deferred Musculoskeletal exam: PRESENT: other - The left leg is shortened and externally rotated. Patient has 1+ DP and PT pulses. Sensation is diminished in a stocking glove distribution. The patient is unable to dorsiflex and plantarflex the ankle actively consistent with chronic foot drop. Results Laboratory Results: 07/24/20 01:00 07/23/20 22:55 07/23/20 07/23/20 07/24/20 22:55 22:55 01:00 WBC Cancelled 15.1 H RBC Cancelled 5.97 H Hgb Cancelled 16.2 Hct Cancelled 51.7 H MCV Cancelled 87 MCH Cancelled 27.1 MCHC Cancelled 31.3 L RDW Cancelled 14.1 H Plt Count Cancelled 58 L Seg Neutrophils % Cancelled 93.7 H Sodium 135.6 L Potassium 4.2 Chloride 108 H Carbon Dioxide 22 Anion Gap 6 BUN 18 Creatinine 1.02 Est GFR ( Amer) > 60 Glucose 137 H Calcium 9.3 Total Bilirubin 0.4 AST 20 Alkaline Phosphatase 72 Total Protein 6.9 Albumin 3.9 Impressions: Femur X-Ray 07/23/20 20:15 IMPRESSION: Significant left proximal femur fracture. Hip X-Ray 07/23/20 20:15 IMPRESSION: Significant left hip fracture with varus deformity. Assessment & Plan - Time Time Spent: 30 to 50 Minutes Anticipated discharge: SNF Anticipated DC Timeframe: within 72 hours - Plan Summary Plan Summary: Patient is a 49-year-old male who was recently undergone kidney and pancreatic transplants. He has severe peripheral neuropathy and foot drop secondary to type 1 diabetes. He sustained a fall last evening from a standing height resulting in a displaced intertrochanteric fracture of the left hip. I have recommended internal fixation with a long cephalomedullary gamma nail. Risk, benefits, and alternatives were discussed with the patient. Opportunity for questions was provided. All questions were answered to his satisfaction. Risks include the risk of with anesthesia, the risk of infection, the risk of injury to nerves and vessels, the risk of nonunion and malunion, and the possible need for additional surgical procedures. The risk of blood loss and the need for transfusion were discussed and the patient understands this as well. An opportunity for questions was provided all questions were answered to his satisfaction the patient breast understanding and wishes to proceed. On presentation the patient is thrombocytopenic. There are no platelets available for administration of the hospital. We are awaiting the arrival of platelets that we can proceed with surgery.
[2020-07-24] MEDS ORDERED: VANCOMYCIN HCL INJ 1000 MG VIAL IV ONE (09:15)
[2020-07-24 09:59] LABS: HEMATOCRIT 48.8 % (37.9-51.0); HEMOGLOBIN 15.2 g/dL (13.5-17.0); MEAN CORPUSCULAR HEMOGLOBIN 27.1 pg (27.0-33.4); MEAN CORPUSCULAR HGB CONC 31.2 g/dL (32.0-36.0); MEAN CORPUSCULAR VOLUME 87 fl (80-97); RED BLOOD COUNT 5.61 10^6/uL (4.35-5.55); RED CELL DISTRIBUTION WIDTH 14.4 % (11.5-14.0); WHITE BLOOD COUNT 12.4 10^3/uL (4.0-10.5)
[2020-07-24] MEDS ORDERED: ENOXAPARIN SODIUM INJ 40 MG/0.4 ML DISP.SYRIN SUBCUT SCH (10:00)
[2020-07-24 10:02] LABS: PLATELET COUNT 123 10^3/uL (150-450)
[2020-07-24 10:04] LABS: ABSOLUTE LYMPHOCYTES# (MANUAL) 0.7 10^3/uL (0.5-4.7); ABSOLUTE MONOCYTES # (MANUAL) 0.2 10^3/uL (0.1-1.4); BASOPHILS % (MANUAL) 0 % (0-2); EOSINOPHILS % (MANUAL) 0 % (0-6); LYMPHOCYTES % (MANUAL) 5 % (13-45); MONOCYTES % (MANUAL) 2 % (3-13); PLATELET CLUMPS PRESENT; PLATELET COMMENT DECREASED; RBC MORPHOLOGY COMMENT NORMO-CYTIC/CHROMIC; SEGMENTED NEUTROPHILS % (MAN) 92 % (42-78); TOTAL CELLS COUNTED 100
[2020-07-24] MEDS ORDERED: OXYCODONE-ACETAMINOPHEN 5-325 MG TABLET ONE (10:47)
[2020-07-24] MEDS: INSULIN LISPRO 100 UNIT/ML 3 ML VIAL SUBCUT SCH ×2 (14:17→17:51)
[2020-07-24] MEDS: FAMOTIDINE 20 MG TABLET PO SCH ×2 (14:32→23:23)
[2020-07-24] MEDS: OXYCODONE-ACETAMINOPHEN 5-325 MG TABLET PO PRN (15:06)
[2020-07-24] MEDS ORDERED: MYCOPHENOLATE SODIUM 180 MG PO SCH (18:00)
[2020-07-24] MEDS ORDERED: ONDANSETRON HCL INJ/PF 4 MG/2 ML SDV ONE (18:03)
[2020-07-24] MEDS: TAMSULOSIN HCL 0.4 MG CAP.SR.24H PO SCH (23:23)
[2020-07-25] MEDS: INSULIN LISPRO 100 UNIT/ML 3 ML VIAL SUBCUT SCH ×4 (01:33→17:05)
[2020-07-25] MEDS: HYDROMORPHONE HCL INJ/PF 2 MG/ML AMPULE IV PRN ×5 (03:18→20:24)
[2020-07-25] MEDS ORDERED: VANCOMYCIN HCL 1,000 MG in DEXTROSE 5%-WATER 250 ML IV PRN (05:00)
[2020-07-25] MEDS ORDERED: VANCOMYCIN HCL 2,000 MG in DEXTROSE 5%-WATER 500 ML IV PRN (05:00)
[2020-07-25] MEDS: ONDANSETRON HCL INJ/PF 4 MG/2 ML SDV IV PRN ×2 (05:51→13:26)
[2020-07-25 06:03] LABS: HEMATOCRIT 41.3 % (37.9-51.0); HEMOGLOBIN 13.3 g/dL (13.5-17.0); MEAN CORPUSCULAR HEMOGLOBIN 27.8 pg (27.0-33.4); MEAN CORPUSCULAR HGB CONC 32.2 g/dL (32.0-36.0); MEAN CORPUSCULAR VOLUME 86 fl (80-97); RED BLOOD COUNT 4.79 10^6/uL (4.35-5.55); RED CELL DISTRIBUTION WIDTH 14.3 % (11.5-14.0); WHITE BLOOD COUNT 8.5 10^3/uL (4.0-10.5)
[2020-07-25 06:14] LABS: ANION GAP 7 (5-19); BLOOD UREA NITROGEN 21 mg/dL (7-20); CALCIUM 9.1 mg/dL (8.4-10.2); CARBON DIOXIDE 21 mmol/L (22-30); CHLORIDE 108 mmol/L (98-107); GLUCOSE 111 mg/dL (75-110); POTASSIUM 5.1 mmol/L (3.6-5.0)
[2020-07-25 06:28] LABS: ABSOLUTE MONOCYTES # (MANUAL) 0.6 10^3/uL (0.1-1.4); BAND NEUTROPHILS % (MANUAL) 3 % (3-5); BASOPHILS % (MANUAL) 0 % (0-2); EOSINOPHILS % (MANUAL) 0 % (0-6); LYMPHOCYTES % (MANUAL) 0 % (13-45); MONOCYTES % (MANUAL) 7 % (3-13); SEGMENTED NEUTROPHILS % (MAN) 90 % (42-78); TOTAL CELLS COUNTED 100
[2020-07-25 06:33] LABS: ANISOCYTOSIS SLIGHT; POIKILOCYTOSIS SLIGHT; SCHISTOCYTES SLIGHT; TOXIC GRANULATION 1+
[2020-07-25 06:34] LABS: PLATELET CLUMPS PRESENT; PLATELET COMMENT DECREASED; ROULEAUX SLIGHT; TEAR DROP CELLS SLIGHT
[2020-07-25 06:35] LABS: PLATELET COUNT 125 10^3/uL (150-450)
[2020-07-25] MEDS ORDERED: KETAMINE HCL INJ 500 MG/10 ML VIAL ONE (06:39)
[2020-07-25] MEDS ORDERED: HYDROMORPHONE HCL INJ/PF 2 MG/ML AMPULE ONE (06:40)
[2020-07-25] MEDS ORDERED: EPHEDRINE SULFATE INJ 50 MG/1 ML AMPULE ONE (06:40)
[2020-07-25] MEDS ORDERED: MIDAZOLAM 2 MG/2 ML INJ ONE (06:40)
[2020-07-25] MEDS ORDERED: PROPOFOL INJ 200 MG/20 ML VIAL IV ONE (06:40)
[2020-07-25] MEDS ORDERED: FENTANYL CITRATE INJ/PF 100 MCG/2 ML AMPUL ONE (06:40)
[2020-07-25] MEDS ORDERED: ONDANSETRON HCL INJ/PF 4 MG/2 ML SDV ONE (06:42)
[2020-07-25] MEDS ORDERED: DEXAMETHASONE SOD PHOSPHATE INJ 4 MG/1 ML VIAL ONE (06:42)
[2020-07-25] MEDS ORDERED: LIDOCAINE 2% INJ (20 MG/ML) 20 ML MDV ONE (06:44)
[2020-07-25] MEDS ORDERED: TACROLIMUS 1 MG PO SCH (08:00)
[2020-07-25] MEDS ORDERED: PROMETHAZINE HCL INJ 25 MG/1 ML VIAL IV PRN ×2 (08:13)
[2020-07-25] MEDS ORDERED: MEPERIDINE HCL/PF INJ 25 MG/1 ML DISP.SYRIN IV PRN (08:13)
[2020-07-25] MEDS ORDERED: MORPHINE SULFATE 10 MG/ML INJ IV PRN (08:13)
[2020-07-25] MEDS ORDERED: DIPHENHYDRAMINE HCL 50 MG/ML VIAL IV PRN (08:13)
[2020-07-25] MEDS ORDERED: FENTANYL CITRATE INJ/PF 100 MCG/2 ML AMPUL IV PRN ×3 (08:13)
[2020-07-25] MEDS ORDERED: OXYCODONE-ACETAMINOPHEN 5-325 MG TABLET PO PRN ×2 (08:13)
--- NOTE | 2020-07-25 09:01 | EKG REPORT ---
SEVERITY:- ABNORMAL ECG - SINUS OR ECTOPIC ATRIAL TACHYCARDIA LEFT BUNDLE BRANCH BLOCK : Confirmed by: Tiffany Tejada MD 25-Jul-2020 09:00:26
--- NOTE | 2020-07-25 09:40 | Operative Report ---
Operative Report DATE OF SURGERY: 07/25/20 PREOPERATIVE DIAGNOSIS: Left hip displaced intertrochanteric fracture POSTOPERATIVE DIAGNOSIS: Left hip displaced intertrochanteric fracture OPERATION: Left hip cephalomedullary gamma nail SURGEON: DREA JEWELL ANESTHESIA: Spinal COMPLICATIONS: None ESTIMATED BLOOD LOSS: 150 cc INTRAOPERATIVE FINDINGS: Comminution of the proximal hip including both trochanters and proximal femur at the level of the lesser trochanter PROCEDURE: Indications for procedure: The patient is a 49-year-old man with a history of pancreatic and kidney transplants. He suffers from severe diabetic neuropathy and foot drop. He sustained a fall at home resulting in a comminuted and displaced intertrochanteric fracture of his left hip. Description of procedure: Following the induction of a spinal anesthetic and administration of 2 g of vancomycin, the patient was placed on a fracture table. All bony prominences were padded. Traction was placed on the leg to realign the extremity and fractures. Upon application of traction it was noted that the patient had a significantly more comminuted proximal fracture involving both trochanters as well as the proximal femur at the level of the lesser trochanter. The left lower extremity was then sterilely prepped with ChloraPrep and draped in standard fashion. An incision was made proximal to the trochanter. Bovie electrocautery was used down to fascia. A small fascial rent was opened. Guidewire was placed in the appropriate position at the tip of the greater trochanter and driven down the shaft of the femur. This was then overreamed. A long ball-tipped guidewire was placed down to the level of the knee. Central position of the guidewire was confirmed. It was then measured. An 11 mm x 440 mm gamma nail was then placed. With the guide from the gamma nail, a guidewire was placed centrally within the neck and head. It was measured, drilled, and a compression screw was placed. Compression screw was locked in dynamic mode proximally. Due to the severe comminution of the level of the trochanters, it was decided to perform distal locking. A perfect circles technique was used to place a screw distally at the level of the distal femur. Its position was checked on biplanar image intensification. The wounds were then copiously irrigated. Fascia was reapproximated with 2-0 Vicryl suture. The subcutaneous tissue was closed with 2 oh barbed suture. The skin was reapproximated with a 3-0 subcuticular barbed Monocryl. A mesh and glue construct was placed on top of the subcuticular closure. Sterile dressing was then applied. The patient tolerated procedure well without complication was brought recovery in stable condition.
--- NOTE | 2020-07-25 10:08 | RADIOLOGY REPORT (SQ) ---
EXAM DESCRIPTION: HIP LEFT AP/LATERAL; NO CHG FLUORO IMAGES COMPLETED DATE/TIME: 07/25/2020 9:58 am REASON FOR STUDY: IM NAILING LEFT HIP ASSISTED WITH FLUORO IN OR COMPARISON: None. FLUOROSCOPY TIME: 2.6 5 images saved to PACS. TECHNIQUE: Intra-operative images acquired during surgical procedure to evaluate progress. NUMBER OF IMAGES: 5 LIMITATIONS: None. FINDINGS: Intraoperative fluoroscopic images demonstrate evidence of intramedullary dae and dynamic femoral neck pin fixation. Please see operative report for detailed description. IMPRESSION: IMAGE(S) OBTAINED DURING PROCEDURE. COMMENT: Quality ID 145: Final reports for procedures using fluoroscopy that document radiation exp osure indices, or exposure time and number of fluorographic images (if radiation exposure indices are not available) Please consult full operative report of the attending physician for description of the procedure. TECHNICAL DOCUMENTATION: JOB ID: [id number] 2010 [employer]- All Rights Reserved Reading location - IP/workstation name: [email or web address]
--- NOTE | 2020-07-25 10:08 | RADIOLOGY REPORT (SQ) ---
EXAM DESCRIPTION: HIP LEFT AP/LATERAL; NO CHG FLUORO IMAGES COMPLETED DATE/TIME: 07/25/2020 9:58 am REASON FOR STUDY: IM NAILING LEFT HIP ASSISTED WITH FLUORO IN OR COMPARISON: None. FLUOROSCOPY TIME: 2.6 5 images saved to PACS. TECHNIQUE: Intra-operative images acquired during surgical procedure to evaluate progress. NUMBER OF IMAGES: 5 LIMITATIONS: None. FINDINGS: Intraoperative fluoroscopic images demonstrate evidence of intramedullary dae and dynamic femoral neck pin fixation. Please see operative report for detailed description. IMPRESSION: IMAGE(S) OBTAINED DURING PROCEDURE. COMMENT: Quality ID [id number]: Final reports for procedures using fluoroscopy that document radiation exp osure indices, or exposure time and number of fluorographic images (if radiation exposure indices are not available) Please consult full operative report of the attending physician for description of the procedure. TECHNICAL DOCUMENTATION: JOB ID: [id number] 2010 [employer]- All Rights Reserved Reading location - IP/workstation name: [email or web address]
[2020-07-25] MEDS: PREDNISONE 5 MG TABLET PO SCH (10:48)
[2020-07-25] MEDS: FAMOTIDINE 20 MG TABLET PO SCH ×2 (10:48→21:02)
[2020-07-25] MEDS: ASPIRIN 81 MG TABLET, ENT COATED PO SCH (10:48)
[2020-07-25] MEDS: RINGERS SOLUTION,LACTATED 1,000 ML IV PRN (10:49)
--- NOTE | 2020-07-25 13:18 | PDOC PROGRESS REPORT ---
Subjective Date:: 07/25/20 Subjective:: 49 year old male with a history of kidney and pancreas transplant in December 2019, thang mitchell, with peripheral neuropathy and foot drop presents to the ER after he sustained a fall. Patient states that he was tripped by his dog and fell down to the ground hurting his left hip area. Since the fall he has been having severe constant, 10/10 intensity left hip pain with some visible deformity on the lateral side of his hip. He has not been able to move his left lower extremity due to pain since the incident. Patient has chronic limitation in moving his both lower extremities due to foot drop and severe peripheral neuropathy from diabetes. He denies any new onset numbness or tingling in his lower extremity distal to the injury site. He has not noticed swelling of his left lower extremity apart from the injury site. He denies any fever, and has not had any urinary or bowel movement since the incident. He denies any cough, chest pain, palpitation, nausea, vomiting or diarrhea in the past few days. He also denies any dizziness, loss of consciousness during, prior to or after the fall. 07/24/2063-11-udto-old male with history of kidney, pancreas replacement in December 2017 on immunosuppressants admitted after a fall. Found to have left hip fracture. Dr. Tomas was consulted, patient [place] go [place] [address], to repeat the platelet count today. Comfortably in the bed alert awake communicating well. 07/25/[id number]-rrxi-old male admitted with the left hip fracture status post left hip gamma nail placement. Patient is comfortably in the bed communicating well. Not in distress. Reason For Visit: LEFT PROXIMAL FEMORAL FRACTURE,HIP FRACTURE Physical Exam Vital Signs: Temp Pulse Resp BP Pulse Ox 97.8 F 99 18 140/74 H 98 07/25/20 11:00 07/25/20 11:00 07/25/20 11:00 07/25/20 11:00 07/25/20 11:00 Intake & Output 07/24/20 07/25/20 07/26/20 06:59 06:59 06:59 Intake Total 1450 2250 Output Total 600 350 Balance 850 1900 Weight 90.6 kg 90.6 kg General appearance: PRESENT: no acute distress, cooperative, well-developed Head exam: PRESENT: atraumatic Eye exam: PRESENT: PERRLA Mouth exam: PRESENT: moist, tongue midline Teeth exam: PRESENT: poor dentation Neck exam: ABSENT: carotid bruit, JVD, lymphadenopathy, thyromegaly Respiratory exam: PRESENT: decreased breath sounds Cardiovascular exam: PRESENT: RRR. ABSENT: diastolic murmur, rubs, systolic murmur Vascular exam: PRESENT: normal capillary refill GI/Abdominal exam: PRESENT: normal bowel sounds, soft. ABSENT: distended, guarding, mass, organolmegaly, rebound, tenderness Rectal exam: PRESENT: deferred Extremities exam: PRESENT: full ROM. ABSENT: calf tenderness, clubbing, pedal edema Neurological exam: PRESENT: alert, awake, oriented to person, oriented to place, oriented to time, oriented to situation, CN II-XII grossly intact. ABSENT: motor sensory deficit Psychiatric exam: PRESENT: appropriate affect, normal mood. ABSENT: homicidal ideation, suicidal ideation Skin exam: PRESENT: dry, intact, warm. ABSENT: cyanosis, rash Results Laboratory Results: 07/25/20 05:32 07/25/20 05:32 07/25/20 07/25/20 05:32 05:32 WBC 8.5 RBC 4.79 Hgb 13.3 L Hct 41.3 MCV 86 MCH 27.8 MCHC 32.2 RDW 14.3 H Plt Count 125 L Seg Neutrophils % Not Reportable Sodium 136.0 L Potassium 5.1 H Chloride 108 H Carbon Dioxide 21 L Anion Gap 7 BUN 21 H Creatinine 1.17 Est GFR ( Amer) > 60 Glucose 111 H Calcium 9.1 Impressions: Femur X-Ray 07/23/20 20:15 IMPRESSION: Significant left proximal femur fracture. Fluoroscopy 07/25/20 00:00 IMPRESSION: IMAGE(S) OBTAINED DURING PROCEDURE. Hip X-Ray 07/25/20 00:00 IMPRESSION: IMAGE(S) OBTAINED DURING PROCEDURE. Assessment and Plan - Diagnosis (1) Closed left femoral fracture Qualifiers: Encounter type: initial encounter Is this a current diagnosis for this admission?: Yes Plan: Patient presents with left hip pain after a fall X-ray shows a significant left proximal femoral fracture No sign of vascular compromise detected distal to the fracture site We will control pain with Dilaudid Orthopedics on board and planning to do surgery in the morning 07/25/2020-patient admitted with closed left hip femoral fracture status post gamma nail placement today. Doing well. (2) History of kidney transplant Is this a current diagnosis for this admission?: Yes Plan: Patient has kidney and pancreas transplants in December 2019 Kidney function test on this presentation within the normal limits Continue steroids and other immunosuppressive therapies (3) History of pancreas transplant Is this a current diagnosis for this admission?: Yes Plan: Status post pancreas transplantation 6 months back Continue management as stated above (4) History of diabetes mellitus Is this a current diagnosis for this admission?: Yes Plan: After pancreas transplant patient has been taken off of his insulin and currently not on any medication Continue Accu-Cheks (5) Thrombocytopenia Is this a current diagnosis for this admission?: Yes Plan: 07/24/2020-platelet count is 58,000. Plan is to repeat the CBC. Thrombocytopenia may be secondary to chronic liver disease. Or secondary to immunosuppressants. 07/25/2020-platelet count today is 1 23,000. Improved. - Time Anticipated Discharge Disposition: Home, Self Care Anticipated Discharge Timeframe: within 48 hours
[2020-07-25] MEDS: OXYCODONE-ACETAMINOPHEN 5-325 MG TABLET PO PRN ×3 (14:18→22:30)
[2020-07-25] MEDS: VANCOMYCIN HCL 2,000 MG in DEXTROSE 5%-WATER 500 ML IV SCH (17:27)
[2020-07-25] MEDS ORDERED: ACETAMINOPHEN 325 MG TABLET PO PRN (17:40)
[2020-07-25] MEDS: TAMSULOSIN HCL 0.4 MG CAP.SR.24H PO SCH (21:05)
[2020-07-26] MEDS: INSULIN LISPRO 100 UNIT/ML 3 ML VIAL SUBCUT SCH ×4 (01:18→21:49)
[2020-07-26] MEDS: HYDROMORPHONE HCL INJ/PF 2 MG/ML AMPULE IV PRN ×6 (01:44→21:58)
[2020-07-26] MEDS: OXYCODONE-ACETAMINOPHEN 5-325 MG TABLET PO PRN ×3 (03:46→21:02)
[2020-07-26] MEDS: RINGERS SOLUTION,LACTATED 1,000 ML IV PRN (03:47)
[2020-07-26] MEDS: VANCOMYCIN HCL 2,000 MG in DEXTROSE 5%-WATER 500 ML IV SCH ×2 (05:45→17:36)
[2020-07-26] MEDS: PREDNISONE 5 MG TABLET PO SCH (07:35)
[2020-07-26] MEDS: ONDANSETRON HCL INJ/PF 4 MG/2 ML SDV IV PRN (08:39)
[2020-07-26] MEDS: ENOXAPARIN SODIUM INJ 40 MG/0.4 ML DISP.SYRIN SUBCUT SCH (09:38)
[2020-07-26] MEDS: ASPIRIN 81 MG TABLET, ENT COATED PO SCH (09:38)
[2020-07-26] MEDS: FAMOTIDINE 20 MG TABLET PO SCH ×2 (09:51→21:02)
--- NOTE | 2020-07-26 10:42 | PDOC PROGRESS REPORT ---
Subjective Date:: 07/26/20 Subjective:: 49 year old male with a history of kidney and pancreas transplant in December 2019, thang mitchell, with peripheral neuropathy and foot drop presents to the ER after he sustained a fall. Patient states that he was tripped by his dog and fell down to the ground hurting his left hip area. Since the fall he has been having severe constant, 10/10 intensity left hip pain with some visible deformity on the lateral side of his hip. He has not been able to move his left lower extremity due to pain since the incident. Patient has chronic limitation in moving his both lower extremities due to foot drop and severe peripheral neuropathy from diabetes. He denies any new onset numbness or tingling in his lower extremity distal to the injury site. He has not noticed swelling of his left lower extremity apart from the injury site. He denies any fever, and has not had any urinary or bowel movement since the incident. He denies any cough, chest pain, palpitation, nausea, vomiting or diarrhea in the past few days. He also denies any dizziness, loss of consciousness during, prior to or after the fall. 07/24/2014-89-fxej-old male with history of kidney, pancreas replacement in December 2017 on immunosuppressants admitted after a fall. Found to have left hip fracture. Dr. Tomas was consulted, patient may go [place] [address], to repeat the platelet count today. Comfortably in the bed alert awake communicating well. 07/25/[id number]-isci-old male admitted with the left hip fracture status post left hip gamma nail placement. Patient is comfortably in the bed communicating well. Not in distress. 07/26/2019-51-ddhk-old male admitted with left wrist fracture status post surgery. Doing well. No postop complications noticed. Physical therapy is following the patient. Reason For Visit: LEFT PROXIMAL FEMORAL FRACTURE,HIP FRACTURE Physical Exam Vital Signs: Temp Pulse Resp BP Pulse Ox 97.6 F 93 17 129/73 H 98 07/26/20 09:07 07/26/20 07:31 07/26/20 07:31 07/26/20 07:31 07/26/20 07:31 Intake & Output 07/25/20 07/26/20 07/27/20 06:59 06:59 06:59 Intake Total 1450 3950 500 Output Total 600 550 Balance 850 3400 500 Weight 90.6 kg 90.2 kg General appearance: PRESENT: no acute distress, cooperative, well-developed Head exam: PRESENT: atraumatic Eye exam: PRESENT: PERRLA Mouth exam: PRESENT: moist, tongue midline Teeth exam: PRESENT: poor dentation Neck exam: ABSENT: carotid bruit, JVD, lymphadenopathy, thyromegaly Respiratory exam: PRESENT: decreased breath sounds Pulses: PRESENT: normal dorsalis pedis pul GI/Abdominal exam: PRESENT: normal bowel sounds, soft. ABSENT: distended, guard ing, mass, organolmegaly, rebound, tenderness Rectal exam: PRESENT: deferred Extremities exam: PRESENT: full ROM, other - Surgical site looks clean.. ABSENT: calf tenderness, clubbing, pedal edema Neurological exam: PRESENT: alert, awake, oriented to person, oriented to place, oriented to time, oriented to situation, CN II-XII grossly intact. ABSENT: motor sensory deficit Skin exam: PRESENT: dry, intact, warm. ABSENT: cyanosis, rash Results Laboratory Results: 07/26/20 05:59 07/25/20 05:32 07/26/20 05:59 WBC Cancelled RBC Cancelled Hgb Cancelled Hct Cancelled MCV Cancelled MCH Cancelled MCHC Cancelled RDW Cancelled Plt Count Cancelled Seg Neutrophils % Cancelled Impressions: Femur X-Ray 07/23/20 20:15 IMPRESSION: Significant left proximal femur fracture. Fluoroscopy 07/25/20 00:00 IMPRESSION: IMAGE(S) OBTAINED DURING PROCEDURE. Hip X-Ray 07/25/20 00:00 IMPRESSION: IMAGE(S) OBTAINED DURING PROCEDURE. Assessment and Plan - Diagnosis (1) Closed left femoral fracture Qualifiers: Encounter type: initial encounter Is this a current diagnosis for this admission?: Yes Plan: Patient presents with left hip pain after a fall X-ray shows a significant left proximal femoral fracture No sign of vascular compromise detected distal to the fracture site We will control pain with Dilaudid Orthopedics on board and planning to do surgery in the morning 07/25/2020-patient admitted with closed left hip femoral fracture status post gamma nail placement today. Doing well. 07/26/20-postop day 1. Admitted with left hip fracture status post gamma nail placement. 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 (3) History of pancreas transplant Is this a current diagnosis for this admission?: Yes Plan: Status post pancreas transplantation 6 months back Continue management as stated above (4) History of diabetes mellitus Is this a current diagnosis for this admission?: No Plan: After pancreas transplant patient has been taken off of his insulin and currently not on any medication Continue Accu-Cheks 07/26/2020-latest blood sugar is 106. To continue insulin sliding scale before meals and at bedtime. (5) Thrombocytopenia Is this a current diagnosis for this admission?: Yes - Time Anticipated Discharge Disposition: Home, Self Care Anticipated Discharge Timeframe: within 72 hours
[2020-07-26 11:40] LABS: HEMATOCRIT 35.6 % (37.9-51.0); HEMOGLOBIN 11.4 g/dL (13.5-17.0); MEAN CORPUSCULAR HEMOGLOBIN 27.3 pg (27.0-33.4); MEAN CORPUSCULAR HGB CONC 31.9 g/dL (32.0-36.0); MEAN CORPUSCULAR VOLUME 86 fl (80-97); RED BLOOD COUNT 4.16 10^6/uL (4.35-5.55); RED CELL DISTRIBUTION WIDTH 14.1 % (11.5-14.0); WHITE BLOOD COUNT 8.2 10^3/uL (4.0-10.5)
[2020-07-26 12:35] LABS: ABSOLUTE LYMPHOCYTES# (MANUAL) 0.1 10^3/uL (0.5-4.7); ABSOLUTE MONOCYTES # (MANUAL) 0.8 10^3/uL (0.1-1.4); ANISOCYTOSIS SLIGHT; BASOPHILS % (MANUAL) 0 % (0-2); EOSINOPHILS % (MANUAL) 4 % (0-6); LYMPHOCYTES % (MANUAL) 1 % (13-45); MONOCYTES % (MANUAL) 10 % (3-13); PLATELET COMMENT DECREASED; SEGMENTED NEUTROPHILS % (MAN) 85 % (42-78); TOTAL CELLS COUNTED 100
[2020-07-26 12:36] LABS: PLATELET COUNT 144 10^3/uL (150-450)
[2020-07-26] MEDS: TAMSULOSIN HCL 0.4 MG CAP.SR.24H PO SCH (17:32)
--- NOTE | 2020-07-26 18:09 | PDOC PROGRESS REPORT ---
Subjective Date:: 07/26/20 Subjective:: Patient reports mild postoperative discomfort. Reason For Visit: LEFT PROXIMAL FEMORAL FRACTURE,HIP FRACTURE POD # 1 s/p left cephalomedullary Gamma nail for subtrochanteric fracture Physical Exam Vital Signs: Temp Pulse Resp BP Pulse Ox 98 F 90 18 135/65 H 98 07/26/20 16:00 07/26/20 16:00 07/26/20 16:00 07/26/20 16:00 07/26/20 16:00 Intake & Output 07/25/20 07/26/20 07/27/20 06:59 06:59 06:59 Intake Total 1450 3950 1780 Output Total 600 550 Balance 850 3400 1780 Weight 90.6 kg 90.2 kg General appearance: PRESENT: no acute distress, well-developed, well-nourished Head exam: PRESENT: atraumatic, normocephalic Respiratory exam: PRESENT: clear to auscultation raimundo. ABSENT: rales, rhonchi, wheezes Cardiovascular exam: PRESENT: RRR. ABSENT: diastolic murmur, rubs, systolic murmur Pulses: PRESENT: +1 pedal pulses bilateral Musculoskeletal exam: PRESENT: other - The surgical wounds are clean, dry, and intact. There is no drainage, erythema or signs of infection. NV exam unchanged. Results Laboratory Results: 07/26/20 11:27 07/25/20 05:32 07/26/20 07/26/20 05:59 11:27 WBC Cancelled 8.2 RBC Cancelled 4.16 L Hgb Cancelled 11.4 L Hct Cancelled 35.6 L MCV Cancelled 86 MCH Cancelled 27.3 MCHC Cancelled 31.9 L RDW Cancelled 14.1 H Plt Count Cancelled 144 L Seg Neutrophils % Cancelled Not Reportable Impressions: Femur X-Ray 07/23/20 20:15 IMPRESSION: Significant left proximal femur fracture. Fluoroscopy 07/25/20 00:00 IMPRESSION: IMAGE(S) OBTAINED DURING PROCEDURE. Hip X-Ray 07/25/20 00:00 IMPRESSION: IMAGE(S) OBTAINED DURING PROCEDURE. Assessment & Plan - Diagnosis (1) Closed left subtrochanteric femur fracture Qualifiers: Encounter type: initial encounter Is this a current diagnosis for this admission?: Yes (2) Left hip pain Is this a current diagnosis for this admission?: Yes (3) Bilateral foot-drop Is this a current diagnosis for this admission?: Yes (4) Thrombocytopenia Is this a current diagnosis for this admission?: Yes - Time Anticipated Discharge Disposition: Home with Home Health Anticipated Discharge Timeframe: within 48 hours Critical Time spent with patient: Less than 15 minutes - Plan Summary Plan Summary: POD # 1 s/p cephalomedullary nail for left subtrochanteric fracture 1. perioperative antibiotics 2. DVT prophylaxis: Lovenox is ordered but has not been given due to low platelet count which given the clumping on the specimens is likely an aberrant value. Would consider changing to Eliquis or Xeralto. 3. Physical therapy: WBAT. Patient is at high risk for injury of the the dominant right leg while transferring due to severe diabetic neuropathy. Patient is at a risk for torsional ankle or tibial shaft fracture. 4. Surgical wound closed with barbed suture, mesh and surgical glue construct. Patient may shower upon hospital discharge. There is no need for home health for wound assessment. 5. Patient is stable for discharge from [facility]. Once patient is medically stable and ambulating safely, he may be discharged home. 6. Patient should follow up in 2-3 weeks post discharge.
[2020-07-26] MEDS ORDERED: DOCUSATE SODIUM 100 MG CAPSULE PO ONE (23:00)
[2020-07-27] MEDS: HYDROMORPHONE HCL INJ/PF 2 MG/ML AMPULE IV PRN ×5 (00:55→17:44)
[2020-07-27 05:01] LABS: HEMATOCRIT 33.3 % (37.9-51.0); HEMOGLOBIN 10.7 g/dL (13.5-17.0); MEAN CORPUSCULAR HEMOGLOBIN 27.4 pg (27.0-33.4); MEAN CORPUSCULAR HGB CONC 32.1 g/dL (32.0-36.0); MEAN CORPUSCULAR VOLUME 86 fl (80-97); PLATELET COUNT 111 10^3/uL (150-450); RED CELL DISTRIBUTION WIDTH 13.8 % (11.5-14.0); WHITE BLOOD COUNT 6.3 10^3/uL (4.0-10.5)
[2020-07-27 05:42] LABS: ABSOLUTE LYMPHOCYTES# (MANUAL) 0.3 10^3/uL (0.5-4.7); ABSOLUTE MONOCYTES # (MANUAL) 0.5 10^3/uL (0.1-1.4); BASOPHILS % (MANUAL) 0 % (0-2); EOSINOPHILS % (MANUAL) 3 % (0-6); LYMPHOCYTES % (MANUAL) 4 % (13-45); MONOCYTES % (MANUAL) 8 % (3-13); PLATELET COMMENT DECREASED; SEGMENTED NEUTROPHILS % (MAN) 85 % (42-78); TOTAL CELLS COUNTED 100
[2020-07-27 05:44] LABS: OVALOCYTES SLIGHT
[2020-07-27 05:47] LABS: POIKILOCYTOSIS SLIGHT
[2020-07-27] MEDS: ONDANSETRON HCL INJ/PF 4 MG/2 ML SDV IV PRN (05:49)
[2020-07-27] MEDS: OXYCODONE-ACETAMINOPHEN 5-325 MG TABLET PO PRN ×3 (06:25→19:38)
[2020-07-27 07:42] LABS: ALKALINE PHOSPHATASE 49 U/L (38-126); ANION GAP 6 (5-19); ASPARTATE AMINO TRANSFERASE 32 U/L (17-59); BILIRUBIN,DIRECT 0.1 mg/dL (0.0-0.4); BILIRUBIN,TOTAL 0.6 mg/dL (0.2-1.3); BLOOD UREA NITROGEN 11 mg/dL (7-20); CALCIUM 8.7 mg/dL (8.4-10.2); CARBON DIOXIDE 25 mmol/L (22-30); CHLORIDE 103 mmol/L (98-107); GLUCOSE 111 mg/dL (75-110); POTASSIUM 4.4 mmol/L (3.6-5.0); TOTAL PROTEIN 5.5 g/dL (6.3-8.2)
[2020-07-27] MEDS: PREDNISONE 5 MG TABLET PO SCH (07:43)
[2020-07-27] MEDS: INSULIN LISPRO 100 UNIT/ML 3 ML VIAL SUBCUT SCH ×4 (07:44→20:59)
[2020-07-27] MEDS: DOCUSATE SODIUM 100 MG CAPSULE PO SCH (09:19)
[2020-07-27] MEDS: FAMOTIDINE 20 MG TABLET PO SCH ×2 (09:19→21:02)
--- NOTE | 2020-07-27 09:25 | PDOC PROGRESS REPORT ---
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 Patient states that he was tripped by his dog and fell down to the ground hurting his left hip area. Since the fall he has been having severe constant, 10/10 intensity left hip pain with some visible deformity on the lateral side of his hip. He has not been able to move his left lower extremity due to pain since the incident. Patient has chronic limitation in moving his both lower extremities due to foot drop and severe peripheral neuropathy from diabetes. He denies any new onset numbness or tingling in his lower extremity distal to the injury site. He has not noticed swelling of his left lower extremity apart from the injury site. He denies any fever, and has not had any urinary or bowel movement since the incident. He denies any cough, chest pain, palpitation, nausea, vomiting or diarrhea in the past few days. He also denies any dizziness, loss of consciousness during, prior to or after the fall. 07/24/2092-18-uokm-old male with history of kidney, pancreas replacement in December 2017 on immunosuppressants admitted after a fall. Found to have left hip fracture. Dr. Tomas was consulted, patient [place] [address], to repeat the platelet count today. Comfortably in the bed alert awake communicating well. 07/25/[id number]-gxjo-old male admitted with the left hip fracture status post left hip gamma nail placement. Patient is comfortably in the bed communicating well. Not in distress. 07/26/2085-11-kfli-old male admitted with left wrist fracture status post surgery. Doing well. No postop complications noticed. Physical therapy is following the patient. 07/27/2020 -no acute events in the last 24 hours. Patient is complaining of swelling of the left lower leg and the swelling around the left knee. Plan is to discontinue IV fluids and to give Lasix 20 mg IV 1 dose. As per the patient , pain is in control. Reason For Visit: LEFT PROXIMAL FEMORAL FRACTURE,HIP FRACTURE Physical Exam Vital Signs: Temp Pulse Resp BP Pulse Ox 97.7 F 98 18 141/78 H 97 07/27/20 09:09 07/27/20 07:46 07/27/20 07:46 07/27/20 07:46 07/27/20 07:46 Intake & Output 07/26/20 07/27/20 07/28/20 06:59 06:59 06:59 Intake Total 3950 2480 Output Total 550 900 Balance 3400 1580 Weight 90.2 kg 85.2 kg General appearance: PRESENT: no acute distress Head exam: PRESENT: atraumatic Eye exam: PRESENT: PERRLA Ear exam: PRESENT: normal external ear exam Teeth exam: PRESENT: poor dentation Neck exam: ABSENT: carotid bruit, JVD, lymphadenopathy, thyromegaly Respiratory exam: PRESENT: decreased breath sounds Cardiovascular exam: PRESENT: RRR. ABSENT: diastolic murmur, rubs, systolic murmur GI/Abdominal exam: PRESENT: normal bowel sounds, soft. ABSENT: distended, guarding, mass, organolmegaly, rebound, tenderness Rectal exam: PRESENT: deferred Extremities exam: PRESENT: other - Left lower leg was swollen with 1+ edema. Surgical sites looks clean. Slight swelling is around the left knee. Neurological exam: PRESENT: alert, awake, oriented to person, oriented to place, oriented to time, oriented to situation, CN II-XII grossly intact. ABSENT: motor sensory deficit Psychiatric exam: PRESENT: appropriate affect, normal mood. ABSENT: homicidal ideation, suicidal ideation Skin exam: PRESENT: dry, intact, warm. ABSENT: cyanosis, rash Results Laboratory Results: 07/27/20 04:50 07/27/20 04:50 07/26/20 07/27/20 07/27/20 11:27 04:50 04:50 WBC 8.2 6.3 RBC 4.16 L 3.90 L Hgb 11.4 L 10.7 L Hct 35.6 L 33.3 L MCV 86 86 MCH 27.3 27.4 MCHC 31.9 L 32.1 RDW 14.1 H 13.8 Plt Count 144 L 111 L Seg Neutrophils % Not Reportable Not Reportable Sodium 133.9 L Potassium 4.4 Chloride 103 Carbon Dioxide 25 Anion Gap 6 BUN 11 Creatinine 0.90 Est GFR ( Amer) > 60 Glucose 111 H Calcium 8.7 Magnesium 1.6 Total Bilirubin 0.6 AST 32 Alkaline Phosphatase 49 Total Protein 5.5 L Albumin 3.0 L Impressions: Femur X-Ray 07/23/20 20:15 IMPRESSION: Significant left proximal femur fracture. Fluoroscopy 07/25/20 00:00 IMPRESSION: IMAGE(S) OBTAINED DURING PROCEDURE. Hip X-Ray 07/25/20 00:00 IMPRESSION: IMAGE(S) OBTAINED DURING PROCEDURE. Assessment and Plan - Diagnosis (1) Closed left femoral fracture Qualifiers: Encounter type: initial encounter Is this a current diagnosis for this admission?: Yes Plan: Patient presents with left hip pain after a fall X-ray shows a significant left proximal femoral fracture No sign of vascular compromise detected distal to the fracture site We will control pain with Dilaudid Orthopedics on board and planning to do surgery in the morning 07/25/2020-patient admitted with closed left hip femoral fracture status post gamma nail placement today. Doing well. 07/26/20-postop day 1. Admitted with left hip fracture status post gamma nail placement. 2019-postop day 2. Doing well. No acute events in the last 24 hours. To continue to follow Dr. Tomas's recommendations. 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 (3) History of pancreas transplant Is this a current diagnosis for this admission?: Yes Plan: Status post pancreas transplantation 6 months back Continue management as stated above (4) History of diabetes mellitus Is this a current diagnosis for this admission?: No Plan: After pancreas transplant patient has been taken off of his insulin and currently not on any medication Continue Accu-Cheks 07/26/2020-latest blood sugar is 106. To continue insulin sliding scale before meals and at bedtime. (5) Thrombocytopenia Is this a current diagnosis for this admission?: Yes Plan: 07/24/2020-platelet count is 58,000. Plan is to repeat the CBC. Thrombocytopenia may be secondary to chronic liver disease. Or secondary to immunosuppressants. 07/25/2020-platelet count today is 1 23,000. Improved. - Time Anticipated Discharge Disposition: Home, Self Care Anticipated Discharge Timeframe: within 72 hours
[2020-07-27] MEDS ORDERED: FUROSEMIDE INJ/PF 20 MG/2 ML SDV IV ONE (09:30)
[2020-07-27] MEDS: ENOXAPARIN SODIUM INJ 40 MG/0.4 ML DISP.SYRIN SUBCUT SCH (09:47)
[2020-07-27] MEDS: ASPIRIN 81 MG TABLET, ENT COATED PO SCH (09:47)
[2020-07-27] MEDS: TAMSULOSIN HCL 0.4 MG CAP.SR.24H PO SCH (17:03)
[2020-07-28] MEDS: HYDROMORPHONE HCL INJ/PF 2 MG/ML AMPULE IV PRN ×5 (00:13→19:34)
[2020-07-28] MEDS ORDERED: CALCIUM CARBONATE 500 MG TAB.CHEW PO PRN (01:33)
[2020-07-28] MEDS: OXYCODONE-ACETAMINOPHEN 5-325 MG TABLET PO PRN ×3 (05:32→22:20)
[2020-07-28] MEDS: INSULIN LISPRO 100 UNIT/ML 3 ML VIAL SUBCUT SCH ×4 (07:24→21:03)
[2020-07-28] MEDS: ENOXAPARIN SODIUM INJ 40 MG/0.4 ML DISP.SYRIN SUBCUT SCH (09:01)
[2020-07-28] MEDS: FAMOTIDINE 20 MG TABLET PO SCH ×2 (09:04→21:03)
[2020-07-28] MEDS: DOCUSATE SODIUM 100 MG CAPSULE PO SCH (09:04)
[2020-07-28] MEDS: PREDNISONE 5 MG TABLET PO SCH (09:05)
[2020-07-28] MEDS: ASPIRIN 81 MG TABLET, ENT COATED PO SCH (09:05)
--- NOTE | 2020-07-28 09:24 | PDOC PROGRESS REPORT ---
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 Patient states that he was tripped by his dog and fell down to the ground hurting his left hip area. Since the fall he has been having severe constant, 10/10 intensity left hip pain with some visible deformity on the lateral side of his hip. He has not been able to move his left lower extremity due to pain since the incident. Patient has chronic limitation in moving his both lower extremities due to foot drop and severe peripheral neuropathy from diabetes. He denies any new onset numbness or tingling in his lower extremity distal to the injury site. He has not noticed swelling of his left lower extremity apart from the injury site. He denies any fever, and has not had any urinary or bowel movement since the incident. He denies any cough, chest pain, palpitation, nausea, vomiting or diarrhea in the past few days. He also denies any dizziness, loss of consciousness during, prior to or after the fall. 07/24/2062-34-kuno-old male with history of kidney, pancreas replacement in December 2017 on immunosuppressants admitted after a fall. Found to have left hip fracture. Dr. Tomas was consulted, patient [place] [address], to repeat the platelet count today. Comfortably in the bed alert awake communicating well. 07/25/[id number]-sjge-old male admitted with the left hip fracture status post left hip gamma nail placement. Patient is comfortably in the bed communicating well. Not in distress. 07/26/2032-65-vwlx-old male admitted with left wrist fracture status post surgery. Doing well. No postop complications noticed. Physical therapy is following the patient. 07/27/2020 -no acute events in the last 24 hours. Patient is complaining of swelling of the left lower leg and the swelling around the left knee. Plan is to discontinue IV fluids and to give Lasix 20 mg IV 1 dose. As per the patient , pain is in control. 07/28/[id number]-osjb-old male with history of kidney transplant, pancreas transplant admitted for left hip sugar, status post surgery. Doing well. Physical therapy is working with the patient. Reason For Visit: LEFT PROXIMAL FEMORAL FRACTURE,HIP FRACTURE Physical Exam Vital Signs: Temp Pulse Resp BP Pulse Ox 98.2 F 95 17 171/65 H 98 07/28/20 08:20 07/28/20 05:31 07/28/20 05:31 07/28/20 05:31 07/28/20 05:31 Intake & Output 07/27/20 07/28/20 07/29/20 06:59 06:59 06:59 Intake Total 2480 476 Output Total 900 1655 Balance 1580 -1655 476 Weight 85.2 kg 85.2 kg General appearance: PRESENT: no acute distress, cooperative Eye exam: PRESENT: PERRLA Mouth exam: PRESENT: moist, tongue midline Teeth exam: PRESENT: poor dentation Neck exam: ABSENT: carotid bruit, JVD, lymphadenopathy, thyromegaly Respiratory exam: PRESENT: decreased breath sounds Cardiovascular exam: PRESENT: RRR. ABSENT: diastolic murmur, rubs, systolic murmur GI/Abdominal exam: PRESENT: normal bowel sounds, soft. ABSENT: distended, guarding, mass, organolmegaly, rebound, tenderness Rectal exam: PRESENT: deferred Extremities exam: PRESENT: full ROM. ABSENT: calf tenderness, clubbing, pedal edema Neurological exam: PRESENT: alert, awake, oriented to person, oriented to place, oriented to time, oriented to situation, CN II-XII grossly intact. ABSENT: motor sensory deficit Psychiatric exam: PRESENT: appropriate affect, normal mood. ABSENT: homicidal ideation, suicidal ideation Results Laboratory Results: 07/27/20 04:50 07/27/20 04:50 Impressions: Femur X-Ray 07/23/20 20:15 IMPRESSION: Significant left proximal femur fracture. Fluoroscopy 07/25/20 00:00 IMPRESSION: IMAGE(S) OBTAINED DURING PROCEDURE. Hip X-Ray 07/25/20 00:00 IMPRESSION: IMAGE(S) OBTAINED DURING PROCEDURE. Assessment and Plan - Diagnosis (1) Closed left femoral fracture Qualifiers: Encounter type: initial encounter Is this a current diagnosis for this admission?: Yes Plan: Patient presents with left hip pain after a fall X-ray shows a significant left proximal femoral fracture No sign of vascular compromise detected distal to the fracture site We will control pain with Dilaudid Orthopedics on board and planning to do surgery in the morning 07/25/2020-patient admitted with closed left hip femoral fracture status post gamma nail placement today. Doing well. 07/26/20-postop day 1. Admitted with left hip fracture status post gamma nail placement. 07/27/20-postop day 2. Doing well. No acute events in the last 24 hours. To continue to follow Dr. Tomas's recommendations. 07/28/2020-patient admitted after a fall found to have a left hip fracture status post surgery postop day 3. Doing well. No postop complications noticed. Physical therapy is working with the patient. Patient may go home with home health. 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 (3) History of pancreas transplant Is this a current diagnosis for this admission?: Yes Plan: Status post pancreas transplantation 6 months back Continue management as stated above (4) History of diabetes mellitus Is this a current diagnosis for this admission?: No Plan: After pancreas transplant patient has been taken off of his insulin and currently not on any medication Continue Accu-Cheks 07/26/2020-latest blood sugar is 106. To continue insulin sliding scale before meals and at bedtime. (5) Thrombocytopenia Is this a current diagnosis for this admission?: Yes Plan: 07/24/2020-platelet count is 58,000. Plan is to repeat the CBC. Thrombocytopenia may be secondary to chronic liver disease. Or secondary to immunosuppressants. 07/25/2020-platelet count today is 1 23,000. Improved. - Time Anticipated Discharge Disposition: Home, Self Care Anticipated Discharge Timeframe: within 48 hours
--- NOTE | 2020-07-28 09:27 | PDOC PROGRESS REPORT ---
Subjective Date:: 07/28/20 Subjective:: Patient reports significant improvement in postoperative discomfort. Reason For Visit: LEFT PROXIMAL FEMORAL FRACTURE,HIP FRACTURE Postoperative day #3 status post cephalomedullary nail for left hip subtrochanteric fracture Physical Exam Vital Signs: Temp Pulse Resp BP Pulse Ox 98.2 F 95 17 171/65 H 98 07/28/20 08:20 07/28/20 05:31 07/28/20 05:31 07/28/20 05:31 07/28/20 05:31 Intake & Output 07/27/20 07/28/20 07/29/20 06:59 06:59 06:59 Intake Total 2480 476 Output Total 900 1655 Balance 1580 -1655 476 Weight 85.2 kg 85.2 kg General appearance: PRESENT: no acute distress, well-developed, well-nourished Head exam: PRESENT: atraumatic, normocephalic Neck exam: ABSENT: carotid bruit, JVD, lymphadenopathy, thyromegaly Respiratory exam: PRESENT: clear to auscultation raimundo. ABSENT: rales, rhonchi, wheezes Cardiovascular exam: PRESENT: bradycardia Pulses: PRESENT: +1 pedal pulses bilateral Musculoskeletal exam: PRESENT: other - The surgical incisions are clean, dry, and intact. There is no drainage, erythema or signs of infection. Neurovascular examination is unchanged. Results Laboratory Results: 07/27/20 04:50 07/27/20 04:50 Impressions: Femur X-Ray 07/23/20 20:15 IMPRESSION: Significant left proximal femur fracture. Fluoroscopy 07/25/20 00:00 IMPRESSION: IMAGE(S) OBTAINED DURING PROCEDURE. Hip X-Ray 07/25/20 00:00 IMPRESSION: IMAGE(S) OBTAINED DURING PROCEDURE. Assessment & Plan - Diagnosis (1) Closed left subtrochanteric femur fracture Qualifiers: Encounter type: initial encounter Is this a current diagnosis for this admission?: Yes (2) Left hip pain Is this a current diagnosis for this admission?: Yes (3) Bilateral foot-drop Is this a current diagnosis for this admission?: Yes (4) Thrombocytopenia Is this a current diagnosis for this admission?: Yes - Time Anticipated Discharge Disposition: Home, Self Care Anticipated Discharge Timeframe: within 48 hours Critical Time spent with patient: 15-24 minutes Medications reviewed and adjusted accordingly: Yes - Plan Summary Plan Summary: POD # 3 s/p cephalomedullary nail for left subtrochanteric fracture 2. DVT prophylaxis: The patient continues with mild thrombocytopenia. I have discontinued Lovenox and started Eliquis. The patient would likely benefit from a discharge prescription of Eliquis as well. 3. Physical therapy: [facility]. Patient is at high risk for injury of the the dominant right leg while transferring due to severe diabetic neuropathy. Pat ient is at a risk for torsional ankle or tibial shaft fracture. 4. Surgical wound closed with barbed suture, mesh and surgical glue construct. Patient may shower upon hospital discharge. There is no need for home health for wound assessment. 5. Patient is stable for discharge from [facility]. Once patient is medically stable and ambulating safely, he may be discharged home. 6. Patient should follow up in 2-3 weeks post discharge.
[2020-07-28] MEDS: APIXABAN 2.5 MG TABLET PO SCH ×2 (10:23→21:03)
[2020-07-28] MEDS ORDERED: MAGNESIUM CITRATE 296 ML BOTTLE PO ONE (12:40)
[2020-07-28] MEDS: TAMSULOSIN HCL 0.4 MG CAP.SR.24H PO SCH (21:03)
[2020-07-29] MEDS: HYDROMORPHONE HCL INJ/PF 2 MG/ML AMPULE IV PRN ×4 (04:47→17:21)
[2020-07-29] MEDS: INSULIN LISPRO 100 UNIT/ML 3 ML VIAL SUBCUT SCH ×4 (07:11→21:06)
[2020-07-29] MEDS: FAMOTIDINE 20 MG TABLET PO SCH ×2 (09:05→21:14)
[2020-07-29] MEDS: APIXABAN 2.5 MG TABLET PO SCH ×2 (09:05→21:14)
[2020-07-29] MEDS: DOCUSATE SODIUM 100 MG CAPSULE PO SCH ×3 (09:05→21:14)
[2020-07-29] MEDS: ASPIRIN 81 MG TABLET, ENT COATED PO SCH (09:12)
[2020-07-29] MEDS: PREDNISONE 5 MG TABLET PO SCH (09:12)
--- NOTE | 2020-07-29 09:37 | PDOC PROGRESS REPORT ---
Subjective Date:: 07/29/20 Subjective:: Patient in reasonable spirits. Still having pain. Walked 10 feet with physical therapy yesterday. Anticipate greater distance today. Still has not had a bowel movement. Reason For Visit: LEFT PROXIMAL FEMORAL FRACTURE,HIP FRACTURE Physical Exam Vital Signs: Temp Pulse Resp BP Pulse Ox 98.0 F 92 20 151/67 H 97 07/29/20 00:00 07/29/20 00:00 07/29/20 00:00 07/29/20 00:00 07/29/20 00:00 Intake & Output 07/28/20 07/29/20 07/30/20 06:59 06:59 06:59 Intake Total 1706 Output Total 1655 1575 Balance -1655 131 Weight 85.2 kg 85 kg General appearance: PRESENT: cooperative, mild distress, well-developed Head exam: PRESENT: atraumatic, normocephalic Mouth exam: PRESENT: moist, tongue midline Neck exam: PRESENT: full ROM. ABSENT: JVD Respiratory exam: PRESENT: clear to auscultation raimundo, symmetrical, unlabored. A BSENT: rales, rhonchi, tachypnea Cardiovascular exam: PRESENT: RRR, +S1, +S2. ABSENT: bradycardia, diastolic murmur, irregular rhythm, systolic murmur, tachycardia GI/Abdominal exam: PRESENT: normal bowel sounds, soft. ABSENT: tenderness Rectal exam: PRESENT: deferred Gentrourinary exam: ABSENT: indwelling catheter Extremities exam: ABSENT: pedal edema Musculoskeletal exam: PRESENT: ambulatory - Weightbearing as tolerated, normal inspection, other - Incision from recent left femur surgery. ABSENT: deformity, dislocation Neurological exam: PRESENT: alert, awake, oriented to person, oriented to place, oriented to time, oriented to situation, CN II-XII grossly intact. ABSENT: altered Psychiatric exam: PRESENT: appropriate affect. ABSENT: agitated, anxious Focused psych exam: ABSENT: delusional, paranoid, restlessness Skin exam: PRESENT: dry, normal color, warm. ABSENT: rash Results Laboratory Results: 07/27/20 04:50 07/27/20 04:50 Impressions: Femur X-Ray 07/23/20 20:15 IMPRESSION: Significant left proximal femur fracture. Fluoroscopy 07/25/20 00:00 IMPRESSION: IMAGE(S) OBTAINED DURING PROCEDURE. Hip X-Ray 07/25/20 00:00 IMPRESSION: IMAGE(S) OBTAINED DURING PROCEDURE. Assessment and Plan - Diagnosis (1) Closed left femoral fracture Qualifiers: Encounter type: initial encounter Is this a current diagnosis for this admission?: Yes (2) History of kidney transplant Is this a current diagnosis for this admission?: Yes (3) History of pancreas transplant Is this a current diagnosis for this admission?: Yes (4) History of diabetes mellitus Is this a current diagnosis for this admission?: No (5) Thrombocytopenia Is this a current diagnosis for this admission?: Yes - Plan Summary Summary: (1) Closed left femoral fracture Qualifiers: Encounter type: initial encounter Is this a current diagnosis for this admission?: Yes Plan: Patient presents with left hip pain after a fall X-ray shows a significant left proximal femoral fracture No sign of vascular compromise detected distal to the fracture site We will control pain with Dilaudid Orthopedics on board and planning to do surgery in the morning 07/25/2020-patient admitted with closed left hip femoral fracture status post gamma nail placement today. Doing well. 07/26/20-postop day 1. Admitted with left hip fracture status post gamma nail placement. 07/27/20-postop day 2. Doing well. No acute events in the last 24 hours. To [facility] rodr[facility] to follow Dr. Tomas's recommendations. 07/28/2020-patient admitted after a fall found to have a left hip fracture status post surgery postop day 3. Doing well. No postop complications noticed. Physical therapy is working with the patient. Patient may go home with home health. 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 (3) History of pancreas transplant Is this a current diagnosis for this admission?: Yes Plan: Status post pancreas transplantation 6 months back Continue management as stated above (4) History of diabetes mellitus Is this a current diagnosis for this admission?: No Plan: After pancreas transplant patient has been taken off of his insulin and currently not on any medication Continue Accu-Cheks 07/26/2020-latest blood sugar is 106. To continue insulin sliding scale before meals and at bedtime. (5) Thrombocytopenia Is this a current diagnosis for this admission?: Yes Plan: 07/24/2020-platelet count is 58,000. Plan is to repeat the CBC. Thrombocytopenia may be secondary to chronic liver disease. Or secondary to immunosuppressants. 07/25/2020-platelet count today is 123,000. Improved. 07/29/2020 Femur fracture-cleared for discharge with weightbearing as tolerated per orthopedic surgery. Continue therapy with home health. Patient does have 15 steps to get into the house and we will arrange transport avoid climbing the stairs. Inside the house everything is on one floor History of kidney pancreas transplant-continue immunosuppressants Diabetes status post pancreas transplant-continue Accu-Cheks and sliding scale. Not on any antidiabetic medications at home. Thrombocytopenia-platelet count was only 111 yesterday. Repeat CBC tomorrow. Anticipate discharge home tomorrow or . - Time Time Spent with patient: 15-24 minutes Medications reviewed and adjusted accordingly: Yes Anticipated Discharge Disposition: Home with Home Health Anticipated Discharge Timeframe: within 48 hours
[2020-07-29] MEDS ORDERED: BISACODYL 5 MG TABEC PO ONE (10:30)
[2020-07-29] MEDS: OXYCODONE-ACETAMINOPHEN 5-325 MG TABLET PO PRN ×2 (10:53→22:14)
[2020-07-29] MEDS: TAMSULOSIN HCL 0.4 MG CAP.SR.24H PO SCH (21:14)
[2020-07-30] MEDS: HYDROMORPHONE HCL INJ/PF 2 MG/ML AMPULE IV PRN ×2 (02:01→15:09)
[2020-07-30 04:23] LABS: HEMATOCRIT 30.9 % (37.9-51.0); HEMOGLOBIN 9.9 g/dL (13.5-17.0); MEAN CORPUSCULAR HEMOGLOBIN 27.3 pg (27.0-33.4); MEAN CORPUSCULAR HGB CONC 32.1 g/dL (32.0-36.0); MEAN CORPUSCULAR VOLUME 85 fl (80-97); PLATELET COUNT 185 10^3/uL (150-450); RED BLOOD COUNT 3.64 10^6/uL (4.35-5.55); RED CELL DISTRIBUTION WIDTH 13.1 % (11.5-14.0); WHITE BLOOD COUNT 6.1 10^3/uL (4.0-10.5)
[2020-07-30 04:40] LABS: ANION GAP 6 (5-19); BLOOD UREA NITROGEN 15 mg/dL (7-20); CALCIUM 9.1 mg/dL (8.4-10.2); CARBON DIOXIDE 28 mmol/L (22-30); CHLORIDE 101 mmol/L (98-107); GLUCOSE 120 mg/dL (75-110); POTASSIUM 4.6 mmol/L (3.6-5.0)
[2020-07-30 04:41] LABS: ABSOLUTE LYMPHOCYTES# (MANUAL) 0.1 10^3/uL (0.5-4.7); ABSOLUTE MONOCYTES # (MANUAL) 0.2 10^3/uL (0.1-1.4); BASOPHILS % (MANUAL) 0 % (0-2); EOSINOPHILS % (MANUAL) 2 % (0-6); LYMPHOCYTES % (MANUAL) 2 % (13-45); MONOCYTES % (MANUAL) 3 % (3-13); SEGMENTED NEUTROPHILS % (MAN) 93 % (42-78); TOTAL CELLS COUNTED 100
[2020-07-30 04:42] LABS: PLATELET CLUMPS PRESENT; PLATELET COMMENT ADEQUATE; RBC MORPHOLOGY COMMENT NORMO-CYTIC/CHROMIC
[2020-07-30] MEDS: INSULIN LISPRO 100 UNIT/ML 3 ML VIAL SUBCUT SCH ×2 (07:30→10:38)
[2020-07-30] MEDS: OXYCODONE-ACETAMINOPHEN 5-325 MG TABLET PO PRN (08:09)
[2020-07-30] MEDS: FAMOTIDINE 20 MG TABLET PO SCH (09:07)
[2020-07-30] MEDS: APIXABAN 2.5 MG TABLET PO SCH (09:07)
[2020-07-30] MEDS: DOCUSATE SODIUM 100 MG CAPSULE PO SCH (09:07)
[2020-07-30] MEDS: ASPIRIN 81 MG TABLET, ENT COATED PO SCH (09:07)
[2020-07-30] MEDS: PREDNISONE 5 MG TABLET PO SCH (09:07)
--- NOTE | 2020-07-30 14:01 | PDOC DISCHARGE SUMMARY ---
Impression - Admit/DC Date/PCP Admission Date/Primary Care Provider: 07/24/20 01:38 Discharge Date: 07/30/20 - Discharge Diagnosis (1) Closed left femoral fracture Is this a current diagnosis for this admission?: Yes (2) History of kidney transplant Is this a current diagnosis for this admission?: Yes (3) History of pancreas transplant Is this a current diagnosis for this admission?: Yes (4) History of diabetes mellitus Is this a current diagnosis for this admission?: No (5) Thrombocytopenia Is this a current diagnosis for this admission?: Yes - Assessment Summary: (1) Closed left femoral fracture Qualifiers: Encounter type: initial encounter Is this a current diagnosis for this admission?: Yes Plan: Patient presents with left hip pain after a fall X-ray shows a significant left proximal femoral fracture No sign of vascular compromise detected distal to the fracture site We will control pain with Dilaudid Orthopedics on board and planning to do surgery in the morning 07/25/2020-patient admitted with closed left hip femoral fracture status post gamma nail placement today. Doing well. 07/26/20-postop day 1. Admitted with left hip fracture status post gamma nail placement. 07/27/20-postop day 2. Doing well. No acute events in the last 24 hours. To continue to follow Dr. Tomas's recommendations. 07/28/2020-patient admitted after a fall found to have a left hip fracture status post surgery postop day 3. Doing well. No postop complications noticed. Physical therapy is working with the patient. Patient may go home with home health. 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 (3) History of pancreas transplant Is this a current diagnosis for this admission?: Yes Plan: Status post pancreas transplantation 6 months back Continue management as stated above (4) History of diabetes mellitus Is this a current diagnosis for this admission?: No Plan: After pancreas transplant patient has been taken off of his insulin and currently not on any medication Continue Accu-Cheks 07/26/2020-latest blood sugar is 106. To continue insulin sliding scale before meals and at bedtime. (5) Thrombocytopenia Is this a current diagnosis for this admission?: Yes Plan: 07/24/2020-platelet count is 58,000. Plan is to repeat the CBC. Thrombocytopenia may be secondary to chronic liver disease. Or secondary to immunosuppressants. 07/25/2020-platelet count today is 123,000. Improved. 07/29/2020 Femur fracture-cleared for discharge with weightbearing as tolerated per orthopedic surgery. Continue therapy with home health. Patient does have 15 steps to get into the house and we will arrange transport avoid climbing the stairs. Inside the house everything is on one floor History of kidney pancreas transplant-continue immunosuppressants Diabetes status post pancreas transplant-continue Accu-Cheks and sliding scale. Not on any antidiabetic medications at home. Thrombocytopenia-platelet count was only 111 yesterday. Repeat CBC tomorrow. Anticipate discharge home tomorrow or . 07/30/2020 Still with discomfort but improving daily with physical therapy. Have arranged transport home so as to avoid the 15 steps into the house We will resume previous medication regimen and discharge home with pain medications and the Eliquis for postop prophylaxis - Additional Information Resuscitation Status: Full Code Discharge Diet: Regular Discharge Activity: Activity As Tolerated, Slowly Increase Activity Referrals: DREA TOMAS MD [ACTIVE STAFF] - 08/12/20 12:15 pm ( ) Prescriptions: Apixaban [Eliquis 2.5 mg Tablet] 2.5 mg PO BID #60 tablet Oxycodone HCl/Acetaminophen [Percocet 5-325 mg Tablet] 1 - 2 tab PO Q4HP PRN #20 tablet PRN Reason: Pain Home Medications: Aspirin [Ecotrin] 81 mg PO DAILY 04/18/19 Mycophenolate Sodium [Myfortic 180 mg Tablet.dr] 540 mg PO BID 07/24/20 Prednisone [Deltasone 5 mg Tablet] 5 mg PO [id number] 07/24/20 Tacrolimus [Envarsus Xr] 7 mg PO QAM 07/24/20 Tamsulosin HCl [Flomax] 0.4 mg PO QPM 07/24/20 Apixaban [Eliquis 2.5 mg Tablet] 2.5 mg PO BID #60 tablet 07/30/20 Calcium Carbonate [Tums Chewable 500 mg Tab.chew] 500 mg PO Q6HP PRN tab.chew 07/30/20 Oxycodone HCl/Acetaminophen [Percocet 5-325 mg Tablet] 1 - 2 tab PO Q4HP PRN #20 tablet 07/30/20 History of Present Illiness History of Present Illness: ELVIA CARVALHO is a 49 year old male with a history of kidney and pancreas transplant in December 2019, diabetes, with peripheral neuropathy and foot drop presents to the ER after he sustained a fall. Patient states that he was tripped by his dog and fell down to the ground hurting his left hip area. Since the fall he has been having severe constant, 10/10 intensity left hip pain with some visible deformity on the lateral side of his hip. He has not been able to move his left lower extremity due to pain since the incident. Patient has chronic limitation in moving his both lower extremities due to foot drop and severe peripheral neuropathy from diabetes. He denies any new onset numbness or tingling in his lower extremity distal to the injury site. He has not noticed swelling of his left lower extremity apart from the injury site. He denies any fever, and has not had any urinary or bowel movement since the incident. He denies any cough, chest pain, palpitation, nausea, vomiting or diarrhea in the past few days. He also denies any dizziness, loss of consciousness during, prior to or after the fall. Hospital Course Hospital Course: See above Physical Exam Vital Signs: Temp Pulse Resp BP Pulse Ox 97.9 F 94 18 133/70 H 99 07/30/20 11:41 07/30/20 11:41 07/30/20 11:41 07/30/20 11:41 07/30/20 11:41 Intake & Output 07/29/20 07/30/20 07/31/20 06:59 06:59 06:59 Intake Total 1706 1167 465 Output Total 1575 2400 750 Balance 131 -1233 -285 Weight 85 kg 92.6 kg General appearance: PRESENT: no acute distress Respiratory exam: PRESENT: clear to auscultation raimundo. ABSENT: rales, rhonchi, wheezes Cardiovascular exam: PRESENT: RRR, +S1, +S2 Neurological exam: PRESENT: alert, awake, oriented to person, oriented to place, oriented to time, oriented to situation, CN II-XII grossly intact. ABSENT: altered Psychiatric exam: PRESENT: appropriate affect. ABSENT: agitated, anxious Results Laboratory Results: WBC 6.1 10^3/uL (4.0-10.5) 12/23/20 04:10 RBC 3.64 10^6/uL (4.35-5.55) L 07/30/20 04:10 Hgb 9.9 g/dL (13.5-17.0) L 07/30/20 04:10 Hct 30.9 % (37.9-51.0) L 07/30/20 04:10 MCV 85 fl (80-97) 07/30/20 04:10 MCH 27.3 pg (27.0-33.4) 07/30/20 04:10 MCHC 32.1 g/dL (32.0-36.0) 07/30/20 04:10 RDW 13.1 % (11.5-14.0) 07/30/20 04:10 Plt Count 185 10^3/uL (150-450) 07/30/20 04:10 Lymph % (Auto) Not Reportable 07/30/20 04:10 Prentiss % (Auto) Not Reportable 07/30/20 04:10 Eos % (Auto) Not Reportable 07/30/20 04:10 Baso % (Auto) Not Reportable 07/30/20 04:10 Absolute Neuts (auto) Not Reportable 07/30/20 04:10 Absolute Lymphs (auto) Not Reportable 07/30/20 04:10 Absolute Monos (auto) Not Reportable 07/30/20 04:10 Absolute Eos (auto) Not Reportable 07/30/20 04:10 Absolute Basos (auto) Not Reportable 07/30/20 04:10 Total Counted 100 07/30/20 04:10 Seg Neutrophils % Not Reportable 07/30/20 04:10 Seg Neuts % (Manual) 93 % (42-78) H 07/30/20 04:10 Band Neutrophils % Cancelled 07/26/20 05:59 Lymphocytes % (Manual) 2 % (13-45) L 07/30/20 04:10 Atypical Lymphs % Cancelled 07/26/20 05:59 Monocytes % (Manual) 3 % (3-13) 07/30/20 04:10 Eosinophils % (Manual) 2 % (0-6) 07/30/20 04:10 Basophils % (Manual) 0 % (0-2) 07/30/20 04:10 Metamyelocytes % Cancelled 07/26/20 05:59 Myelocytes % Cancelled 07/26/20 05:59 Promyelocytes % Cancelled 07/26/20 05:59 Immature Leukocytes % Cancelled 07/26/20 05:59 Abs Neuts (Manual) 5.7 10^3/uL (1.7-8.2) 07/30/20 04:10 Abs Lymphs (Manual) 0.1 10^3/uL (0.5-4.7) L 07/30/20 04:10 Abs Monocytes (Manual) 0.2 10^3/uL (0.1-1.4) 07/30/20 04:10 Absolute Eos (Manual) 0.1 10^3/uL (0.0-0.6) 07/30/20 04:10 Abs Basophils (Manual) 0.0 10^3/uL (0.0-0.2) 07/30/20 04:10 Nucleated RBCs Cancelled 07/26/20 05:59 Differential Comment Cancelled 07/26/20 05:59 Hypersegmented Neuts Cancelled 07/26/20 05:59 Smudge Cells Cancelled 07/26/20 05:59 Toxic Granulation Cancelled 07/26/20 05:59 Toxic Vacuolation Cancelled 07/26/20 05:59 Dohle Bodies Cancelled 07/26/20 05:59 Bert Rods Cancelled 07/26/20 05:59 WBC Morphology Comment Cancelled 07/26/20 05:59 Platelet Estimate Cancelled 07/26/20 05:59 Clumped Platelets PRESENT 07/30/20 04:10 Large Platelets Cancelled 07/26/20 05:59 Giant Platelets Cancelled 07/26/20 05:59 Platelet Comment ADEQUATE 07/30/20 04:10 Polychromasia Cancelled 07/26/20 05:59 Hypochromasia Cancelled 07/26/20 05:59 Poikilocytosis SLIGHT 07/27/20 04:50 Basophilic Stippling Cancelled 07/26/20 05:59 Anisocytosis SLIGHT 07/26/20 11:27 Microcytosis Cancelled 07/26/20 05:59 Macrocytosis Cancelled 07/26/20 05:59 Spherocytes Cancelled 07/26/20 05:59 Pappenheimer Bodies Cancelled 07/26/20 05:59 Sickle Cells Cancelled 07/26/20 05:59 Target Cells Cancelled 07/26/20 05:59 Tear Drop Cells Cancelled 07/26/20 05:59 Ovalocytes SLIGHT 07/27/20 04:50 Stomatocytes Cancelled 07/26/20 05:59 Helmet Cells Cancelled 07/26/20 05:59 [place] Bodies Cancelled 07/26/20 05:59 [place] Cells Cancelled 07/26/20 05:59 Acanthocytes (Spur) Cancelled 07/26/20 05:59 Rouleaux Cancelled 07/26/20 05:59 Schistocytes Cancelled 07/26/20 05:59 RBC Morph Comment NORMO-CYTIC/CHROMIC 07/30/20 04:10 PT 13.2 SEC (11.4-15.4) 07/23/20 22:55 INR 0.98 07/23/20 22:55 APTT 29.1 SEC (23.5-35.8) 07/23/20 22:55 Sodium 134.8 mmol/L (137-145) L 07/30/20 04:10 Potassium 4.6 mmol/L (3.6-5.0) 07/30/20 04:10 Chloride 101 mmol/L (98-107) 07/30/20 04:10 Carbon Dioxide 28 mmol/L (22-30) 07/30/20 04:10 Anion Gap 6 (5-19) 07/30/20 04:10 BUN 15 mg/dL (7-20) 07/30/20 04:10 Creatinine 0.93 mg/dL (0.52-1.25) 07/30/20 04:10 Est GFR ( Amer) > 60 (>60) 07/30/20 04:10 Est GFR (MDRD) Non-Af > 60 (>60) 07/30/20 04:10 Glucose 120 mg/dL (75-110) H 07/30/20 04:10 POC Glucose 99 mg/dL (70-110) 07/30/20 06:55 Calcium 9.1 mg/dL (8.4-10.2) 07/30/20 04:10 Magnesium 1.6 mg/dL (1.6-2.3) 07/27/20 04:50 Total Bilirubin 0.6 mg/dL (0.2-1.3) 07/27/20 04:50 Direct Bilirubin 0.1 mg/dL (0.0-0.4) 07/27/20 04:50 Neonat Total Bilirubin Not Reportable 07/27/20 04:50 Neonat Direct Bilirubin Not Reportable 07/27/20 04:50 Neonat Indirect Bili Not Reportable 07/27/20 04:50 AST 32 U/L (17-59) 07/27/20 04:50 ALT 17 U/L (<50) 07/27/20 04:50 Alkaline Phosphatase 49 U/L (38-126) 07/27/20 04:50 Total Protein 5.5 g/dL (6.3-8.2) L 07/27/20 04:50 Albumin 3.0 g/dL (3.5-5.0) L 07/27/20 04:50 Influenza A (RT-PCR) (NEGATIVE) 07/24/20 23:04 Influenza B (RT-PCR) (NEGATIVE) 07/24/20 23:04 RSV (RT-PCR) (NEGATIVE) 07/24/20 23:04 SARS-CoV-2 Rap RNA(RT-PCR) (NEGATIVE) 07/24/20 23:04 Slides for Path Review Cancelled 07/26/20 05:59 Blood Type A NEGATIVE 07/24/20 08:27 Impressions: Femur X-Ray 07/23/20 20:15 IMPRESSION: Significant left proximal femur fracture. Hip X-Ray 07/23/20 20:15 IMPRESSION: Significant left hip fracture with varus deformity. Fluoroscopy 07/25/20 00:00 IMPRESSION: IMAGE(S) OBTAINED DURING PROCEDURE. Hip X-Ray 07/25/20 00:00 IMPRESSION: IMAGE(S) OBTAINED DURING PROCEDURE. Plan Health Concerns: Complete healing of fracture on the patient with chronic prednisone therapy for his transplants. Plan of Treatment: Discharge home with home health. Alicia for DVT prevention postoperatively. Goals: Complete healing of fracture Time Spent: Greater than 30 Minutes Stroke Is this a Stroke Patient?: No Acute Heart Failure Is this a Heart Failure Patient?: No
[2020-07-30 14:25] VITALS: BP 165/73
== END 2020-07-30 15:15 | disposition home health service (06) | DRG 481 ==
LOC: ER 19:09 → EH 07-24 01:38 → 4W 07-24 13:26
PROVIDERS: ADMIT Student in an Organized Health Care Education/Training Program; ATTEND Hospitalist
PROC: 0QH736Z Insertion of Intramedullary Internal Fixation Device into Left Upper Femur, Percutaneous Approach (ICD-10-PCS; principal; 2020-07-25 07:30)
DX: S72.142A Displaced intertrochanteric fracture of left femur, initial encounter for closed fracture (principal); Z94.83 Pancreas transplant status; Z94.0 Kidney transplant status; E10.42 Type 1 diabetes mellitus with diabetic polyneuropathy; I10 Essential (primary) hypertension; W01.0XXA Fall on same level from slipping, tripping and stumbling without subsequent striking against object, initial encounter; Y92.009 Unspecified place in unspecified non-institutional (private) residence as the place of occurrence of the external cause; D69.59 Other secondary thrombocytopenia; F32.9 Major depressive disorder, single episode, unspecified; Z79.899 Other long term (current) drug therapy; M21.372 Foot drop, left foot; M21.371 Foot drop, right foot; Z20.828 Contact with and (suspected) exposure to other viral communicable diseases
CPT/HCPCS: 01230; 36415; 80048; 80053; 82962; 83735; 85025; 85610; 85730; 86900; 86901; 87799; 93005; 93010; 96374; 96375; 96376; 99285; 0241U; C1713; C1769; C9803; J1100; J1170; J1940; J2250; J2270; J2405; J2704; J3010; J3370; J3490; J7060; J7120; J7512